=== PATIENT | female | born 1935 | race Caucasian/White ===

== ENCOUNTER 2017-10-05 10:06 | Inpatient (IN) | payer MEDICARE ==
[~2017-10-05] VITALS: Ht 149.9 cm; Wt 60.9 kg
[2017-10-05 10:24] VITALS: BP 122/63; PULSE 77; RESP 18; TEMP 97.5; O2SAT 99
[2017-10-05 10:28] VITALS: BP 122/63; PULSE 75; RESP 18; TEMP 97.5; O2SAT 100
--- NOTE | 2017-10-05 10:45 | RADRPT ---
EXAM DATE/TIME: 10/05/2017 10:24 [facility] COMPARISON: No previous studies available for comparison. INDICATIONS : Shortness of breath. Hemoptysis this morning. MEDICAL HISTORY : None. SURGICAL HISTORY : None. ENCOUNTER: Initial ACUITY: 1 day PAIN SCORE: Non-responsive. LOCATION: Bilateral chest FINDINGS: The left base is hypoaerated. There appears to be minimal atelectasis or scarring without consolidati ng airspace disease. Right lung is clear. Heart and mediastinal structures are unremarkable. CONCLUSION: Mild atelectasis versus scarring left lung base. No other evidence of acute process. Blaine Parra MD on October 05, 2017 at 10:42 Board Certified Radiologist. This report was verified electronically.
[2017-10-05] MEDS ORDERED: LANO0.12 PO (10:55)
[2017-10-05] MEDS ORDERED: GABA300C5 PO (10:55)
[2017-10-05] MEDS ORDERED: LOVA20TA PO (10:55)
[2017-10-05] MEDS ORDERED: CELE20TA PO (10:55)
[2017-10-05] MEDS ORDERED: HYDR-3288 PO (10:55)
[2017-10-05 10:57] LABS: AUTOMATED NEUTROPHIL # 9.9 TH/MM3 (1.8-7.7); BASOPHIL % 0.2 % (0.0-2.0); EOSINOPHIL # 0.2 TH/MM3 (0-0.4); EOSINOPHIL % 1.2 % (0.0-4.0); HEMATOCRIT 27.6 % (35.0-46.0); HEMO FLAGS DIFF FINAL; LYMPH % 19.3 % (9.0-44.0); LYMPHOCYTE # 2.6 TH/MM3 (1.0-4.8); MEAN CELL VOLUME 95.3 FL (80.0-100.0); MEAN CORPUSCULAR HEMOGLOBIN 32.1 PG (27.0-34.0); MEAN CORPUSCULAR HGB CONC 33.7 % (32.0-36.0); MONO % 4.9 % (0.0-8.0); NEUT % 74.4 % (16.0-70.0); PLATELET COUNT 265 TH/MM3 (150-450); RED CELL DISTRIBUTION WIDTH 13.3 % (11.6-17.2); WHITE BLOOD COUNT 13.3 TH/MM3 (4.0-11.0)
--- NOTE | 2017-10-05 11:01 | PD ---
HPI Chief Complaint: Bleeding Time Seen by Provider: 10:17 Travel History International Travel<30 days: No Contact w/Intl Traveler<30days: No Traveled to known affect area: No History of Present Illness HPI 82-year-old female was brought in by EMS for evaluation of weakness and vomiting up blood and blood per rectum. Patient states that she did not feel well all day yesterday. Patient patient was seen by her is morning slumped over in the bathroom, lethargic and was vomiting up blood and bleeding from the rectum. Blood pressure at the scene was 80 over 40s. IV was started. Patient was given normal saline 1 L IV bolus and transported ED for evaluation. Patient's states the patient is more confused this morning. Patient states that she has mild aching headache. Patient denies any chest pain or shortness of breath. Patient states that she has mild pain to the abdomen. Patient stated the pain cramping pain diffuse over the abdomen. Patient denies any pain radiation. Patient denies any focal weakness or numbness of extremity. Patient denies any fever chills. Patient denies any back pain. PFSH Past Medical History Hx Anticoagulant Therapy: Yes Atrial Fibrillation: Yes Depression: Yes Diminished Hearing: No Triglycerides - High: Yes Tetanus Vaccination: Unknown Influenza Vaccination: Yes ?: Not Social History Alcohol Use: No Tobacco Use: No Substance Use: No Allergies-Medications (Allergen,Severity, Reaction): Coded Allergies: No Known Allergies (Unverified , 10/05/17) Reported Meds & Prescriptions Reported Meds & Active Scripts Active Reported Lanoxin (Digoxin) 125 Mcg Tablet 125 Mcg PO DAILY Celexa (Citalopram Hydrobromide) 20 Mg Tab 20 Mg PO DAILY Gabapentin 300 Mg Cap 300 Mg PO DAILY IN THE PM Lovastatin 20 Mg Tab 20 Mg PO HS [place] (Hydrocodone-Acetaminophen) 7.5-325 mg Tab 1 Tab PO Q8HR PRN Review of Systems General / Constitutional: No: Fever Eyes: No: Visual changes HENT: Positive: Headaches Cardiovascular: No: Chest Pain or Discomfort Respiratory: No: Shortness of Breath Gastrointestinal: Positive: Abdominal Pain, Hematemesis Genitourinary: No: Dysuria Musculoskeletal: No: Pain Skin: No Rash Neurologic: No: Weakness Psychiatric: No: Depression Endocrine: No: Polydipsia Hematologic/Lymphatic: No: Easy Bruising Physical Exam Narrative GENERAL: Well-nourished, well-developed patient. SKIN: Focused skin assessment warm/dry. HEAD: Normocephalic. EYES: No scleral icterus. No injection or drainage. NECK: Supple, trachea midline. No JVD or lymphadenopathy. CARDIOVASCULAR: Regular rate and rhythm without murmurs, gallops, or rubs. RESPIRATORY: Breath sounds equal bilaterally. No accessory muscle use. GASTROINTESTINAL: Abdomen soft, nondistended. Patient has mild diffuse tenderness over the abdomen. No rebound tenderness. No mass. MUSCULOSKELETAL: No cyanosis, or edema. BACK: Nontender without obvious deformity. No CVA tenderness. Neurologic exam: Patient's lethargic. Patient answers questions appropriately. Patient moves all extremity well. No obvious focal neurological deficit. Data Data Last Documented VS Vital Signs Date Time Temp Pulse Resp B/P (MAP) Pulse Ox O2 Delivery O2 Flow Rate FiO2 10/05/17 10:28 18 100 Nasal Cannula 2.00 10/05/17 10:28 79 10/05/17 10:28 97.5 122/63 (82) Orders Orders Electrocardiogram (10/05/17 10:21) Complete Blood Count With Diff (10/05/17 10:21) Comprehensive Metabolic Panel (10/05/17 10:21) Prothrombin Time / Inr (Pt) (10/05/17 10:21) Act Partial Throm Time (Ptt) (10/05/17 10:21) Urinalysis - C+S If Indicated (10/05/17 10:21) Digoxin (10/05/17 10:21) Thyroid Stimulating Hormone (10/05/17 10:21) Chest, Single Ap (10/05/17 10:21) Ct Brain W/O Iv Contrast(Rout) (10/05/17 10:21) Iv Access Insert/Monitor (10/05/17 10:21) Ecg Monitoring (10/05/17 10:21) Oxygen Administration (10/05/17 10:21) Oximetry (10/05/17 10:21) Type And Screen (10/05/17 10:21) Ct Abd/Pel W Iv Contrast(Rout) (10/05/17 10:26) Labs Laboratory Tests Test 10/05/17 10:30 10/05/17 11:31 White Blood Count 13.3 TH/MM3 Red Blood Count 2.90 MIL/MM3 Hemoglobin 9.3 GM/DL Hematocrit 27.6 % Mean Corpuscular Volume 95.3 FL Mean Corpuscular Hemoglobin 32.1 PG Mean Corpuscular Hemoglobin Concent 33.7 % Red Cell Distribution Width 13.3 % Platelet Count 265 TH/MM3 Mean Platelet Volume 8.2 FL Neutrophils (%) (Auto) 74.4 % Lymphocytes (%) (Auto) 19.3 % Monocytes (%) (Auto) 4.9 % Eosinophils (%) (Auto) 1.2 % Basophils (%) (Auto) 0.2 % Neutrophils # (Auto) 9.9 TH/MM3 Lymphocytes # (Auto) 2.6 TH/MM3 Monocytes # (Auto) 0.7 TH/MM3 Eosinophils # (Auto) 0.2 TH/MM3 Basophils # (Auto) 0.0 TH/MM3 CBC Comment DIFF FINAL Differential Comment Prothrombin Time 11.5 SEC Prothromb Time International Ratio 1.0 RATIO Activated Partial Thromboplast Time 20.9 SEC Blood Urea Nitrogen 61 MG/DL Creatinine 0.68 MG/DL Random Glucose 116 MG/DL Total Protein 4.9 GM/DL Albumin 2.5 GM/DL Calcium Level 7.5 MG/DL Alkaline Phosphatase 31 U/L Aspartate Amino Transf (AST/SGOT) 10 U/L Alanine Aminotransferase (ALT/SGPT) 14 U/L Total Bilirubin 0.3 MG/DL Sodium Level 142 MEQ/L Potassium Level 3.5 MEQ/L Chloride Level 112 MEQ/L Carbon Dioxide Level 21.3 MEQ/L Anion Gap 9 MEQ/L Estimat Glomerular Filtration Rate 83 ML/MIN Thyroid Stimulating Hormone 3rd Gen 3.770 uIU/ML Digoxin Level 0.5 NG/ML Urine Color YELLOW Urine Turbidity CLEAR Urine pH 5.0 Urine Specific [place] 1.027 Urine Protein TRACE mg/dL Urine Glucose (UA) NEG mg/dL Urine Ketones 10 mg/dL Urine Occult Blood NEG Urine Nitrite NEG Urine Bilirubin NEG Urine Urobilinogen LESS THAN 2.0 MG/DL Urine Leukocyte Esterase SMALL Urine RBC LESS THAN 1 /hpf Urine WBC 1 /hpf Urine Mucus FEW /lpf Microscopic Urinalysis Comment CATH-CULT NOT IND MDM Medical Decision Making Medical Screen Exam Complete: Yes Emergency Medical Condition: Yes Interpretation(s) 12:37 PM. Last Impressions Chest X-Ray 10/05/17 1021 Signed Impressions: Service Date/Time: Thursday, October 05, 2017 10:24 - CONCLUSION: Mild atelectasis versus scarring left lung base. No other evidence of acute process. Blaine Parra MD 12:37 PM. CBC WBC 13.3. Hemoglobin 9.3 hematocrit 27.6. 74 neutrophil. BUN 61. Creatinine 0.68. GFR 83. Calcium 7.5. TSH 3.77. Digoxin 0.5. UA is negative. Differential Diagnosis Differential diagnosis including upper GI bleed, lower GI bleed, bowel obstruction, anemia, electrolyte imbalance, cephalgia. Narrative Course 82-year-old female with headache, abdominal pain, hematemesis, rectal bleeding, generalized malaise and weakness. Normal saline solution 1 L IV bolus. Normal saline solution 1 25 cc an hour. Protonix bolus and drip started. Diagnosis Primary Impression: GI bleed Qualified Codes: K92.2 - Gastrointestinal hemorrhage, unspecified Additional Impression: Anemia Qualified Codes: D64.9 - Anemia, unspecified Jaden Harris MD Oct 05, 2017 11:01
[2017-10-05 11:14] LABS: APTT (PATIENT) 20.9 SEC (24.3-30.1); PROTHROMBIN TIME - PATIENT 11.5 SEC (9.8-11.6)
[2017-10-05 11:20] LABS: ANION GAP 9 MEQ/L (5-15); AST (GOT) 10 U/L (15-37); BICARBONATE 21.3 MEQ/L (21.0-32.0); BLOOD UREA NITROGEN 61 MG/DL (7-18); CHLORIDE 112 MEQ/L (98-107); GLOMERULAR FILTRATION RATE 83 ML/MIN (>89); POTASSIUM 3.5 MEQ/L (3.5-5.1); SODIUM (NA) 142 MEQ/L (136-145)
[2017-10-05 11:34] LABS: ALKALINE PHOSPHATASE 31 U/L (45-117); ALT (GPT) 14 U/L (10-53); DIGOXIN 0.5 NG/ML (0.8-2.0); TOTAL BILIRUBIN ADULT 0.3 MG/DL (0.2-1.0)
[2017-10-05 12:01] LABS: BLOOD, URINE NEG (NEG); COMMENT (UR) CATH-CULT NOT IND; CULTURE IF INDICATED CATH CULTURE NOT IND; GLUCOSE,URINE NEG (NEG); KETONE, URINE 10 mg/dL (NEG); MUCUS URINE FEW /lpf (OCC); NITRITE,URINE NEG (NEG); URINE COLOR YELLOW (YELLW/STRAW)
--- NOTE | 2017-10-05 13:00 | RADRPT ---
EXAM DATE/TIME: 10/05/2017 12:17 [facility] COMPARISON: No previous studies available for comparison. INDICATIONS : Found unresponsive earlier today. RADIATION DOSE: 36.32 CTDIvol (mGy) MEDICAL HISTORY : Atrial fibrillation. SURGICAL HISTORY : None. ENCOUNTER: Initial ACUITY: 1 day PAIN SCALE: 0/10 LOCATION: cranial TECHNIQUE: Multiple contiguous axial images were obtained of the head. Using automated exposure control and adj ustment of the mA and/or kV according to patient size, radiation dose was kept as low as reasonably a chievable to obtain optimal diagnostic quality images. DICOM format image data is available electro nically for review and comparison. FINDINGS: CEREBRUM: The ventricles are normal for age. No evidence of midline shift, mass lesion, hemorrhage or acute in farction. Minimal periventricular small vessel ischemic demyelination around the frontal horns of th e lateral ventricles. No extra-axial fluid collections are seen. POSTERIOR FOSSA: The cerebellum and brainstem are intact. The 4th ventricle is midline. The cerebellopontine angle i s unremarkable. EXTRACRANIAL: The visualized portion of the orbits is intact. SKULL: The calvaria is intact. No evidence of skull fracture. Calcific or bony excrescence off the right fr ontoparietal region is overtly benign, does not appear to be contiguous with the epiploic space and m ay represent an old calcified sebaceous cyst. CONCLUSION: 1. Minimal degenerative changes with some periventricular small vessel ischemic demyelination around the frontal horns of the lateral ventricles. 2. Benign calcification in the subcutaneous tissues of the right frontoparietal region. 3. Nothing acute.. Kyrie Tejeda MD on October 05, 2017 at 12:55 Board Certified Radiologist. This report was verified electronically.
[2017-10-05] MEDS ORDERED: IOHEXOL 350 MG/ML 10 ML VIAL (for RAD DIAG) IVCONTRAST ONE (13:06)
--- NOTE | 2017-10-05 13:09 | RADRPT ---
EXAM DATE/TIME: 10/05/2017 12:23 [facility] COMPARISON: No previous studies available for comparison. INDICATIONS : Rectal bleeding, hematemesis. IV CONTRAST: cc Omnipaque 350 (iohexol) IV ORAL CONTRAST: No oral contrast ingested. RADIATION DOSE: 5.36 CTDIvol (mGy) MEDICAL HISTORY : Atrial fibrillation. SURGICAL HISTORY : None. ENCOUNTER: Initial ACUITY: 1 day PAIN SCALE: 3 of 10 LOCATION: Abdomen TECHNIQUE: Volumetric scanning of the abdomen and pelvis was performed. Using automated exposure control and ad justment of the mA and/or kV according to patient size, radiation dose was kept as low as reasonably achievable to obtain optimal diagnostic quality images. DICOM format image data is available electro nically for review and comparison. FINDINGS: LOWER LUNGS: Minimal scarring or atelectasis above the left hemidiaphragm. No confluent infiltrate. LIVER: Homogeneous, but decreased density without lesion. There is no dilation of the biliary tree. Single 1.3 cm irregular calcified gallstone in the gallbladder lumen. SPLEEN: Normal size without lesion. PANCREAS: Within normal limits. KIDNEYS: Normal in size and shape. There is no mass, stone or hydronephrosis. ADRENAL GLANDS: Within normal limits. VASCULAR: There is no aortic aneurysm. BOWEL/MESENTERY: There is some distention of small bowel loops in the left upper abdominal quadrant in a nonspecific p attern. This may represent a focal hypodynamic ileus. No obvious obstruction. No significant divertic ular disease. ABDOMINAL WALL: Within normal limits. RETROPERITONEUM: There is no lymphadenopathy. BLADDER: No wall thickening or mass. REPRODUCTIVE: Patient is status post hysterectomy. INGUINAL: There is no lymphadenopathy or hernia. MUSCULOSKELETAL: S. shaped scoliosis of the thoracolumbar spine. Otherwise intact. CONCLUSION: 1. Isolated, irregular 1.3 cm gallstone in the gallbladder lumen. Mild gallbladder distention but no pericholecystic fluid. 2. Mild, diffuse hepatic fatty infiltration 3. Mild distention of small bowel loops particularly in the left upper abdominal quadrant. Pattern is nonspecific but does not appear to represent obstruction. This could be secondary to a focal hypodyn amic ileus. 4. S-shaped scoliosis of the thoracolumbar spine. Minimal scarring or atelectasis above the left betsey diaphragm. . Kyrie Tejeda MD on October 05, 2017 at 13:01 Board Certified Radiologist. This report was verified electronically.
[2017-10-05 14:00] VITALS: BP 120/70; PULSE 98; RESP 18; O2SAT 100
[2017-10-05] MEDS: SODIUM CHLOR 0.9% 1000 ML INJ 1,000 ML IV SCH (14:34)
--- NOTE | 2017-10-05 14:44 | HHI.HP ---
[facility] Service [facility] Primary Care Physician Brent Scott MD Admission Diagnosis GI bleed Diagnoses: Chief Complaint: Abdominal discomfort and bleeding Travel History International Travel<30 Days: No Contact w/Intl Traveler <30 Da: No Traveled to Known Affected Are: No History of Present Illness This patient is an 82 year old female with a history of atrial fibrillation although not on any blood thinners. She comes to the emergency room with onset 2 days of abdominal discomfort and increasing weakness with sudden onset of vomiting blood and bleeding per her rectum. She went to the bathroom and didn' t come back and her found her lethargic with lots of blood surrounding her in the bathroom. EMS was called and blood pressure was quite low in the 80s over 40s. Patient was given IV fluids in the field and transferred to the emergency room. Patient complains of being cold. She denies any pain at this time although she said her abdomen hurt when she went to the bathroom. She is ever had any bleeding before. She disarm her having endoscopy but this time she feels very tired. She denies any NSAIDs but takes Narco and gabapentin for pain. Patient admitted to the hospital for further evaluation of acute onset of GI bleeding Review of Systems Constitutional: DENIES: Diaphoretic episodes, Fatigue, Fever, Weight gain, Weight loss, Chills, Dizziness, Change in appetite, Night Sweats Endocrine: DENIES: Abnorml menstrual pattern, Heat/cold intolerance, Polydipsia , Polyuria, Polyphagia Eyes: DENIES: Blurred vision, Diplopia, Eye inflammation, Eye pain, Vision loss , Photosensitivity, Double Vision Ears, nose, mouth, throat: DENIES: Tinnitus, Hearing loss, Vertigo, Nasal discharge, Oral lesions, Throat pain, Hoarseness, Ear Pain, Running Nose, Epistaxis, Sinus Pain, Toothache, Odynophagia Respiratory: DENIES: Apneas, Cough, Snoring, Wheezing, Hemoptysis, Sputum production, Shortness of breath Cardiovascular: DENIES: Chest pain, Palpitations, Syncope, Dyspnea on Exertion , PND, Lower Extremity Edema, Orthopnea, Claudication Gastrointestinal: COMPLAINS OF: Abdominal pain, Bloody stools, Nausea, Vomiting , DENIES: Black stools, Constipation, Diarrhea, Difficulty Swallowing, Anorexia Genitourinary: DENIES: Abnormal vaginal bleeding, Dysmenorrhea, Dyspareunia, Sexual dysfunction, Urinary frequency, Urinary incontinence, Urgency, Hematuria , Dysuria, Nocturia, Vaginal discharge Musculoskeletal: COMPLAINS OF: Joint pain, Back pain, DENIES: Muscle aches, Stiffness, Joint Swelling, Neck pain Integumentary: DENIES: Abnormal pigmentation, Pruritus, Rash, Nail changes, Breast masses, Breast skin changes, Nipple discharge Hematologic/lymphatic: DENIES: Bruising, Lymphadenopathy Immunologic/allergic: DENIES: Eczema, Urticaria Neurologic: DENIES: Abnormal gait, Headache, Localized weakness, Paresthesias, Seizures, Speech Problems, Tremor, Poor Balance Psychiatric: DENIES: Anxiety, Confusion, Mood changes, Depression, Hallucinations, Agitation, Suicidal Ideation, Homicidal Ideation, Delusions Except as stated in HPI: all other systems reviewed are Neg Past Family Social History Past Medical History Atrial fibrillation Hypertension Depression/anxiety Chronic pain Past Surgical History Back surgery Reported Medications Reviewed in the EMR Allergies: Coded Allergies: No Known Allergies (Unverified , 10/05/17) Active Ordered Medications Reviewed in the EMR Family History Patient does not recall Social History No tobacco or alcohol dependency issues, lives with her , is independent with her ADLs Physical Exam Vital Signs Vital Signs Date Time Temp Pulse Resp B/P (MAP) Pulse Ox O2 Delivery O2 Flow Rate FiO2 10/05/17 10:28 18 100 Nasal Cannula 2.00 10/05/17 10:28 100 Nasal Cannula 2.00 10/05/17 10:28 79 18 99 Room Air 10/05/17 10:28 97.5 75 18 122/63 (82) 100 Nasal Cannula 2.00 10/05/17 10:24 97.5 77 18 122/63 (82) 99 Physical Exam GENERAL: This is a well-nourished, well-developed patient, clearly distressed regarding the "amount of blood" SKIN: No rashes, ecchymoses or lesions. Cool and dry. HEAD: Atraumatic. Normocephalic. No temporal or scalp tenderness. EYES: Pupils equal round and reactive. Extraocular motions intact. No scleral icterus. No injection or drainage. ENT: Nose without bleeding, purulent drainage or septal hematoma. Throat without erythema, tonsillar hypertrophy or exudate. Uvula midline. Airway patent. NECK: Trachea midline. No JVD or lymphadenopathy. Supple, nontender, no meningeal signs. CARDIOVASCULAR: Regular rate and rhythm without murmurs, gallops, or rubs. RESPIRATORY: Clear to auscultation. Breath sounds equal bilaterally. No wheezes , rales, or rhonchi. GASTROINTESTINAL: Abdomen soft, non-tender, nondistended. No hepato-splenomegaly , or palpable masses. No guarding. MUSCULOSKELETAL: Extremities without clubbing, cyanosis, or edema. No joint tenderness, effusion, or edema noted. No calf tenderness. Negative Homans sign bilaterally. NEUROLOGICAL: Awake and alert. Cranial nerves II through XII intact. Motor and sensory grossly within normal limits. Five out of 5 muscle strength in all muscle groups. Normal speech. Laboratory Laboratory Tests Test 10/05/17 10:30 10/05/17 11:31 White Blood Count 13.3 Red Blood Count 2.90 Hemoglobin 9.3 Hematocrit 27.6 Mean Corpuscular Volume 95.3 Mean Corpuscular Hemoglobin 32.1 Mean Corpuscular Hemoglobin Concent 33.7 Red Cell Distribution Width 13.3 Platelet Count 265 Mean Platelet Volume 8.2 Neutrophils (%) (Auto) 74.4 Lymphocytes (%) (Auto) 19.3 Monocytes (%) (Auto) 4.9 Eosinophils (%) (Auto) 1.2 Basophils (%) (Auto) 0.2 Neutrophils # (Auto) 9.9 Lymphocytes # (Auto) 2.6 Monocytes # (Auto) 0.7 Eosinophils # (Auto) 0.2 Basophils # (Auto) 0.0 CBC Comment DIFF FINAL Differential Comment Prothrombin Time 11.5 Prothromb Time International Ratio 1.0 Activated Partial Thromboplast Time 20.9 Blood Urea Nitrogen 61 Creatinine 0.68 Random Glucose 116 Total Protein 4.9 Albumin 2.5 Calcium Level 7.5 Alkaline Phosphatase 31 Aspartate Amino Transf (AST/SGOT) 10 Alanine Aminotransferase (ALT/SGPT) 14 Total Bilirubin 0.3 Sodium Level 142 Potassium Level 3.5 Chloride Level 112 Carbon Dioxide Level 21.3 Anion Gap 9 Estimat Glomerular Filtration Rate 83 Thyroid Stimulating Hormone 3rd Gen 3.770 Digoxin Level 0.5 Urine Color YELLOW Urine Turbidity CLEAR Urine pH 5.0 Urine Specific [place] 1.027 Urine Protein TRACE Urine Glucose (UA) NEG Urine Ketones 10 Urine Occult Blood NEG Urine Nitrite NEG Urine Bilirubin NEG Urine Urobilinogen LESS THAN 2.0 Urine Leukocyte Esterase SMALL Urine RBC LESS THAN 1 Urine WBC 1 Urine Mucus FEW Microscopic Urinalysis Comment CATH-CULT NOT IND Result Diagram: 10/05/17 1030 10/05/17 1030 Imaging Last Impressions Abdomen/Pelvis CT 10/05/17 1026 Signed Impressions: Service Date/Time: Thursday, October 05, 2017 12:23 - CONCLUSION: 1. Isolated, irregular 1.3 cm gallstone in the gallbladder lumen. Mild gallbladder distention but no pericholecystic fluid. 2. Mild, diffuse hepatic fatty infiltration 3. Mild distention of small bowel loops particularly in the left upper abdominal quadrant. Pattern is nonspecific but does not appear to represent obstruction. This could be secondary to a focal hypodynamic ileus. 4. S-shaped scoliosis of the thoracolumbar spine. Minimal scarring or atelectasis above the left hemidiaphragm. . Kyrie Tejeda MD Head CT 10/05/17 1021 Signed Impressions: Service Date/Time: Thursday, October 05, 2017 12:17 - CONCLUSION: 1. Minimal degenerative changes with some periventricular small vessel ischemic demyelination around the frontal horns of the lateral ventricles. 2. Benign calcification in the subcutaneous tissues of the right frontoparietal region. 3. Nothing acute.. Kyrie Tejeda MD Chest X-Ray 10/05/17 1021 Signed Impressions: Service Date/Time: Thursday, October 05, 2017 10:24 - CONCLUSION: Mild atelectasis versus scarring left lung base. No other evidence of acute process. Blaine Parra MD Caprini VTE Risk Assessment Caprini VTE Risk Assessment: Mod/High Risk (score >= 2) VTE Pharm Contraindication: Active bleeding Caprini Risk Assessment Model Point Value = 1 Point Value = 2 Point Value = 3 Point Value = 5 Age 41-60 Minor surgery BMI > 25 kg/m2 Swollen legs Varicose veins or History of unexplained or recurrent spontaneous Oral contraceptives or hormone replacement Sepsis (< 1 month) Serious lung disease, including pneumonia (< 1 month) Abnormal pulmonary function Acute myocardial infarction Congestive heart failure (< 1 month) History of inflammatory bowel disease Medical patient at bed rest Age 61-74 Arthroscopic surgery Major open surgery (> 45 min) Laparoscopic surgery (> 45 min) Malignancy Confined to bed (> 72 hours) Immobilizing plaster cast Central venous access Age >= 75 History of VTE Family history of VTE Factor V Leiden Prothrombin [id number] Lupus anticoagulant Anticardiolipin antibodies Elevated serum homocysteine Heparin-induced thrombocytopenia Other congenital or acquired thrombophilia Stroke (< 1 month) Elective arthroplasty Hip, pelvis, or leg fracture Acute spinal cord injury (< 1 month) Prophylaxis Regimen Total Risk Factor Score Risk Level Prophylaxis Regimen 0-1 Low Early ambulation 2 Moderate Order ONE of the following: *Sequential Compression Device (SCD) *Heparin 5000 units SQ BID 3-4 Higher Order ONE of the following medications: *Heparin 5000 units SQ TID *Enoxaparin/Lovenox 40 mg SQ daily (WT < 150 kg, CrCl > 30 mL/min) *Enoxaparin/Lovenox 30 mg SQ daily (WT < 150 kg, CrCl > 10-29 mL/min) *Enoxaparin/Lovenox 30 mg SQ BID (WT < 150 kg, CrCl > 30 mL/min) AND/OR *Sequential Compression Device (SCD) 5 or more Highest Order ONE of the following medications: *Heparin 5000 units SQ TID (Preferred with Epidurals) *Enoxaparin/Lovenox 40 mg SQ daily (WT < 150 kg, CrCl > 30 mL/min) *Enoxaparin/Lovenox 30 mg SQ daily (WT < 150 kg, CrCl > 10-29 mL/min) *Enoxaparin/Lovenox 30 mg SQ BID (WT < 150 kg, CrCl > 30 mL/min) AND *Sequential Compression Device (SCD) Assessment and Plan Problem List: (1) Afib ICD Code: I48.91 - Unspecified atrial fibrillation Plan: Patient on digoxin, on no blood thinners per patient Continue to follow on subtherapeutic digoxin (2) Back pain ICD Code: M54.9 - Dorsalgia, unspecified Plan: patient denies NSAIDs, currently takes gabapentin and Narco as needed (3) Hyperlipidemia ICD Code: E78.5 - Hyperlipidemia, unspecified Plan: continue with lovastatin (4) GI bleed ICD Code: K92.2 - Gastrointestinal hemorrhage, unspecified Status: Acute Plan: Painless bleeding at this point line continue with nothing by mouth status, IV hydration, follow for transfusion needs GI consult is pending CT abdomen and pelvis reviewed and does show adynamic ileus without overt signs of a mass or ulceration (5) Anemia ICD Code: D64.9 - Anemia, unspecified Status: Acute Plan: Secondary to acute GI bleeding and blood loss is Follow hemoglobin and transfuse as needed Physician Certification 2 Midnight Certification Type: Admission for Inpatient Services Order for Inpatient Services The services are ordered in accordance with Medicare regulations or non- Medicare payer requirements, as applicable. In the case of services not specified as inpatient-only, they are appropriately provided as inpatient services in accordance with the 2-midnight benchmark. Estimated LOS (days): 3 3 days is the estimated time the patient will need to remain in the hospital, assuming treatment plan goals are met and no additional complications. Post-Hospital Plan: Home Problem Qualifiers (1) GI bleed: Qualified Codes: K92.2 - Gastrointestinal hemorrhage, unspecified (2) Anemia: Qualified Codes: D64.9 - Anemia, unspecified Meryl Reynolds MD Oct 05, 2017 14:44
[2017-10-05] MEDS ORDERED: ACETAMINOPHEN 325 MG TAB PO PRN (14:45)
[2017-10-05] MEDS ORDERED: SODIUM CHLORIDE 0.9% FLUSH 10 ML FLUSH IV FLUSH PRN (14:45)
[2017-10-05] MEDS ORDERED: NALOXONE HCL 0.4 MG/ML AMP IV PUSH PRN (14:45)
[2017-10-05 15:23] VITALS: BP 114/61; PULSE 104; RESP 18; O2SAT 100
[2017-10-05 15:57] LABS: TRANSFERRIN IRON PROFILE 164 MG/DL (200-360)
[2017-10-05 16:00] VITALS: BP 99/57; PULSE 85; PULSE 96; RESP 16; TEMP 99.1; O2SAT 98
[2017-10-05 20:00] VITALS: BP 107/54; PULSE 92; RESP 17; TEMP 99; O2SAT 98
[2017-10-05] MEDS: ACETAMINOPHEN/HYDROcodone 325 MG/7.5 MG TAB PO PRN (20:21)
[2017-10-05] MEDS: SODIUM CHLORIDE 0.9% FLUSH 10 ML FLUSH IV FLUSH SCH (20:21)
[2017-10-05] MEDS: ONDANSETRON HCL 4 MG/2 ML VIAL IVP PRN (20:21)
[2017-10-06] VITALS (11 sets, daily range): BP systolic 100–136; BP diastolic 51–64; PULSE 70–151; RESP 16–19; TEMP 97.5–98.8; O2SAT 99–100
[2017-10-06] MEDS: SODIUM CHLOR 0.9% 1000 ML INJ 1,000 ML IV SCH ×3 (04:24→22:28)
[2017-10-06 06:13] LABS: AUTOMATED NEUTROPHIL # 6.1 TH/MM3 (1.8-7.7); BASOPHIL % 0.5 % (0.0-2.0); EOSINOPHIL # 0.2 TH/MM3 (0-0.4); EOSINOPHIL % 2.2 % (0.0-4.0); HEMATOCRIT 21.3 % (35.0-46.0); HEMO FLAGS DIFF FINAL; LYMPH % 30.5 % (9.0-44.0); MEAN CELL VOLUME 93.8 FL (80.0-100.0); MEAN CORPUSCULAR HEMOGLOBIN 32.4 PG (27.0-34.0); MEAN CORPUSCULAR HGB CONC 34.5 % (32.0-36.0); MONO % 5.5 % (0.0-8.0); NEUT % 61.3 % (16.0-70.0); PLATELET COUNT 231 TH/MM3 (150-450); RED BLOOD COUNT 2.27 MIL/MM3 (4.00-5.30); RED CELL DISTRIBUTION WIDTH 13.5 % (11.6-17.2)
[2017-10-06 06:43] LABS: BICARBONATE 22.7 MEQ/L (21.0-32.0); POTASSIUM 3.7 MEQ/L (3.5-5.1)
[2017-10-06] MEDS ORDERED: SODIUM CHLOR 0.9% 250 ML INJ 250 ML IV ONE (08:30)
[2017-10-06] MEDS: SODIUM CHLORIDE 0.9% FLUSH 10 ML FLUSH IV FLUSH SCH ×2 (08:37→22:28)
[2017-10-06] MEDS: ONDANSETRON HCL 4 MG/2 ML VIAL IVP PRN ×2 (09:23→22:28)
[2017-10-06] MEDS: ACETAMINOPHEN/HYDROcodone 325 MG/7.5 MG TAB PO PRN ×3 (09:38→22:27)
--- NOTE | 2017-10-06 13:09 | EKG ---
Date Performed: 10/05/2017 Time Performed: 10:48:57 PTAGE: 82 years EKG: Sinus rhythm NONSPECIFIC T-WAVE ABNORMALITY BORDERLINE ECG NO PREVIOUS TRACING DOCTOR: Silver Alexander Interpretating Date/Time 10/06/2017 13:07:22
--- NOTE | 2017-10-06 13:40 | PD.CONS ---
HPI History of Present Illness This is a 82 year old with a history of atrial fibrillation, but not on any blood thinners, who came to the emergency room yesterday for gastrointestinal bleeding. She was in her normal state of health up until , when she started having nausea and feeling weak. The generalized weakness progressively worsened throughout the day Saturday and Saturday. On Saturday, she had some mild abdominal cramping with the urge to move her bowels. She then started having nausea and vomiting consisting of black emesis and started passing dark loose stool, with a small amount of red blood in it. She came to the ER for further evaluation and was found to have a 9.3/27.6. She has not had any further vomiting, but her H/H dropped to 7.3/21.3 today. She has had a dark stool today as well. She denies any chest pain, reflux, heartburn, or abnormal weight loss. She denies any history of peptic ulcer disease and does not take NSAIDS or ETOH. She is NPO and requesting something to drink or eat. (Cammie Patterson) PFSH Past Medical History Atrial fibrillation Hypertension Depression/anxiety Chronic pain Past Surgical History Back surgery (Cammie Patterson) Coded Allergies: No Known Allergies (Unverified , 10/05/17) Medications Allergies Coded Allergies Type Severity Reaction Last Updated Verified No Known Allergies 10/05/17 No Active Scripts Medications Dose Route/Sig Max Daily Dose Days Date Category Lanoxin (Digoxin) 125 Mcg Tablet 125 Mcg PO DAILY 10/05/17 Reported Celexa (Citalopram Hydrobromide) 20 Mg Tab 20 Mg PO DAILY 10/05/17 Reported Gabapentin 300 Mg Cap 300 Mg PO DAILY IN THE PM 10/05/17 Reported Lovastatin 20 Mg Tab 20 Mg PO HS 10/05/17 Reported [place] (Hydrocodone-Acetaminophen) 7.5-325 mg Tab 1 Tab PO Q8HR PRN 10/05/17 Reported Family History Mother from unknown type of cancer. Social History Denies the use of tobacco, etoh, illicit drug use. (Cammie Patterson) Review of Systems Constitutional: COMPLAINS OF: Fatigue, Change in appetite, DENIES: Weight loss Respiratory: DENIES: Cough Cardiovascular: DENIES: Chest pain Gastrointestinal: COMPLAINS OF: Abdominal pain (mild cramping on Saturday), Black stools, Nausea, Vomiting, Hematemesis, DENIES: Heartburn Musculoskeletal: COMPLAINS OF: Joint pain, Back pain Neurologic: DENIES: Headache Psychiatric: DENIES: Confusion (YeseniaCammie Villeda ELISHA) GI Exam Vitals I&O Vital Signs Date Time Temp Pulse Resp B/P (MAP) Pulse Ox O2 Delivery O2 Flow Rate FiO2 10/06/17 10:56 79 10/06/17 10:40 18 10/06/17 08:06 98.5 79 16 105/58 (74) 99 10/06/17 04:00 98.1 70 18 102/55 (71) 100 10/06/17 00:00 98.3 73 19 136/64 (88) 100 10/05/17 20:00 99.0 92 17 107/54 (71) 98 10/05/17 20:00 92 10/05/17 16:00 85 10/05/17 16:00 99.1 96 16 99/57 (71) 98 10/05/17 15:31 10/05/17 15:23 104 18 114/61 (78) 100 Nasal Cannula 2.00 10/05/17 14:00 98 18 120/70 (87) 100 Nasal Cannula 2.00 I/O 10/05/17 10/05/17 10/05/17 10/06/17 10/06/17 10/06/17 07:00 15:00 23:00 07:00 15:00 23:00 Intake Total 0 ml Balance 0 ml Intake Oral 0 ml # Voids 1 3 Imaging Last Impressions Abdomen/Pelvis CT 10/05/17 1026 Signed Impressions: Service Date/Time: Thursday, October 05, 2017 12:23 - CONCLUSION: 1. Isolated, irregular 1.3 cm gallstone in the gallbladder lumen. Mild gallbladder distention but no pericholecystic fluid. 2. Mild, diffuse hepatic fatty infiltration 3. Mild distention of small bowel loops particularly in the left upper abdominal quadrant. Pattern is nonspecific but does not appear to represent obstruction. This could be secondary to a focal hypodynamic ileus. 4. S-shaped scoliosis of the thoracolumbar spine. Minimal scarring or atelectasis above the left hemidiaphragm. . Kyrie Tejeda MD Head CT 10/05/17 1021 Signed Impressions: Service Date/Time: Thursday, October 05, 2017 12:17 - CONCLUSION: 1. Minimal degenerative changes with some periventricular small vessel ischemic demyelination around the frontal horns of the lateral ventricles. 2. Benign calcification in the subcutaneous tissues of the right frontoparietal region. 3. Nothing acute.. Kyrie Tejeda MD Chest X-Ray 10/05/17 1021 Signed Impressions: Service Date/Time: Thursday, October 05, 2017 10:24 - CONCLUSION: Mild atelectasis versus scarring left lung base. No other evidence of acute process. Blaine Parra MD Laboratory Test 10/06/17 05:26 White Blood Count 10.0 TH/MM3 Red Blood Count 2.27 MIL/MM3 Hemoglobin 7.3 GM/DL Hematocrit 21.3 % Mean Corpuscular Volume 93.8 FL Mean Corpuscular Hemoglobin 32.4 PG Mean Corpuscular Hemoglobin Concent 34.5 % Red Cell Distribution Width 13.5 % Platelet Count 231 TH/MM3 Mean Platelet Volume 8.1 FL Neutrophils (%) (Auto) 61.3 % Lymphocytes (%) (Auto) 30.5 % Monocytes (%) (Auto) 5.5 % Eosinophils (%) (Auto) 2.2 % Basophils (%) (Auto) 0.5 % Neutrophils # (Auto) 6.1 TH/MM3 Lymphocytes # (Auto) 3.0 TH/MM3 Monocytes # (Auto) 0.6 TH/MM3 Eosinophils # (Auto) 0.2 TH/MM3 Basophils # (Auto) 0.0 TH/MM3 CBC Comment DIFF FINAL Differential Comment Blood Urea Nitrogen 54 MG/DL Creatinine 0.51 MG/DL Random Glucose 84 MG/DL Calcium Level 7.5 MG/DL Sodium Level 145 MEQ/L Potassium Level 3.7 MEQ/L Chloride Level 115 MEQ/L Carbon Dioxide Level 22.7 MEQ/L Anion Gap 7 MEQ/L Estimat Glomerular Filtration Rate 116 ML/MIN Physical Examination HEENT: Normocephalic; atraumatic; no jaundice. CHEST: CTA CARDIAC: Irregular ABDOMEN: Soft, nondistended, nontender; no hepatosplenomegaly; bowel sounds are present in all four quadrants. EXTREMITIES: No clubbing, cyanosis, or edema. SKIN: Normal; no rash; no jaundice. FREIGHT FLAGMAN: No focal deficits; lethargic and oriented times three. Generalized weakness (Cammie Patterson) Assessment and Plan Plan ASSESSMENT: - Upper GIB with hematemesis (black) and dark stool. Not on blood thinners, no NSAIDs, no ETOH. Decreased appetite and nausea, generalized weakness that has progressively been getting worse since . Yesterday started vomiting black gastric secretions and passing dark loose stool. HH dropped from 9.3/27.6 to 7.3/21.3. Not on PPI. NPO. - Anemia, acute blood loss. HH dropped 9.3/27.6 to 7.3/21.3. 2 units PRBC ordered. - Atrial fibrillation (not on blood thinners), HTN, depression/anxiety, chronic pain per attending. PLAN: - Plan for EGD in am - Obtain consents - Clear liquids - NPO after MN - Add Protonix Gtt - Agree with 2 units PRBC - CBC, BMP in am - Notify GI of active bleeding - Supportive care - Further recommendations to follow based on results of above - Pt seen and examined by Dr. Arellano and myself and this note is written on his behalf (Cammie Patterson) Physician Comments Seen and examined, plan as above. For EGD in AM Further recommendations to follow. Thank you for the consult. (Ashutosh Arellano MD) Cammie Patterson Oct 06, 2017 13:40 Ashutosh Arellano MD Oct 06, 2017 14:16
--- NOTE | 2017-10-06 14:28 | HHI.PR ---
Subjective Remarks No evidence of further GI bleed. Hemoglobin has dropped from 9.3-7.3. EGD planned tomorrow morning. Objective Vital Signs Date Time Temp Pulse Resp B/P (MAP) Pulse Ox O2 Delivery O2 Flow Rate FiO2 10/06/17 12:06 98.8 93 16 103/54 (70) 100 10/06/17 10:56 79 10/06/17 10:40 18 10/06/17 08:06 98.5 79 16 105/58 (74) 99 10/06/17 04:00 98.1 70 18 102/55 (71) 100 10/06/17 00:00 98.3 73 19 136/64 (88) 100 10/05/17 20:00 99.0 92 17 107/54 (71) 98 10/05/17 20:00 92 10/05/17 16:00 85 10/05/17 16:00 99.1 96 16 99/57 (71) 98 10/05/17 15:31 10/05/17 15:23 104 18 114/61 (78) 100 Nasal Cannula 2.00 I/O 10/05/17 10/05/17 10/05/17 10/06/17 10/06/17 10/06/17 07:00 15:00 23:00 07:00 15:00 23:00 Intake Total 0 ml Balance 0 ml Intake Oral 0 ml # Voids 1 3 Result Diagram: 10/06/1752510/06/17525 Objective Remarks GENERAL: NAD, A&Ox3 HEAD: Normocephalic. NECK: Supple, trachea midline. No lymphadenopathy. EYES: No scleral icterus. No injection or drainage. CARDIOVASCULAR: Regular rate and rhythm without murmurs, gallops, or rubs. RESPIRATORY: Breath sounds equal bilaterally. No accessory muscle use. GASTROINTESTINAL: Abdomen soft, non-tender, nondistended. MUSCULOSKELETAL: No cyanosis, or edema. SKIN: Warm and dry. NEURO: No focal neurological deficitis. A/P Problem List: (1) Anemia ICD Code: D64.9 - Anemia, unspecified Status: Acute (2) GI bleed ICD Code: K92.2 - Gastrointestinal hemorrhage, unspecified Status: Acute (3) Back pain ICD Code: M54.9 - Dorsalgia, unspecified (4) Hyperlipidemia ICD Code: E78.5 - Hyperlipidemia, unspecified (5) Afib ICD Code: I48.91 - Unspecified atrial fibrillation Assessment and Plan Assessment and plan 82-year-old female admitted secondary to GI bleed with hematemesis GI bleed Hematemesis This has improved No further hematemesis this morning Continue to monitor for recurrence GI following Acute blood loss anemia 2 units PRBC transfused 10/06/17 Follow hemoglobin levels Atrial fibrillation Continue digoxin Back pain Continue [place] Continue gabapentin Hyperlipidemia Continue lovastatin DVT prophylaxis SCDs Problem Qualifiers (1) Anemia: Qualified Codes: D64.9 - Anemia, unspecified (2) GI bleed: Qualified Codes: K92.2 - Gastrointestinal hemorrhage, unspecified Montana Mckeon MD Oct 06, 2017 14:28
[2017-10-06 18:32] LABS: REVIEW FLAG FINAL
[2017-10-06 18:34] LABS: HEMATOCRIT 20.4 % (35.0-46.0)
[2017-10-07] VITALS (15 sets, daily range): BP systolic 91–122; BP diastolic 50–72; PULSE 68–130; RESP 16–20; TEMP 98.2–98.8; O2SAT 96–100
[2017-10-07 00:55] LABS: HEMATOCRIT 25.5 % (35.0-46.0); REVIEW FLAG FINAL
[2017-10-07] MEDS ORDERED: SODIUM CHLORID 0.9% 500 ML INJ 500 ML IV ONE (01:15)
[2017-10-07] MEDS ORDERED: METOPROLOL TARTRATE 25 MG TAB PO PRN (02:30)
[2017-10-07] MEDS ORDERED: LACTATED RINGER'S 1000 ML IV PRN (02:30)
[2017-10-07] MEDS ORDERED: SODIUM CHLORID 0.9% 500 ML IV PRN (02:30)
[2017-10-07] MEDS ORDERED: INSULIN HUMAN REGULAR 1,000 UNITS/10 ML VIAL SQ PRN (02:30)
[2017-10-07] MEDS ORDERED: CHLORHEXIDINE GLUCONATE 2 % 1 PACK (2 CLOTHS) TOPICAL PRN (02:30)
[2017-10-07] MEDS ORDERED: POVIDONE IODINE 5% (ANTISEPSIS KIT) 4 APPLICATIONS EACH NARE PRN (02:30)
[2017-10-07] MEDS: SODIUM CHLOR 0.9% 1000 ML INJ 1,000 ML IV SCH ×2 (06:05→19:13)
[2017-10-07] MEDS: SODIUM CHLORIDE 0.9% FLUSH 10 ML FLUSH IV FLUSH SCH ×2 (09:00→21:00)
[2017-10-07 09:27] LABS: AUTOMATED NEUTROPHIL # 6.4 TH/MM3 (1.8-7.7); BASOPHIL % 0.4 % (0.0-2.0); EOSINOPHIL # 0.2 TH/MM3 (0-0.4); EOSINOPHIL % 1.6 % (0.0-4.0); HEMATOCRIT 22.5 % (35.0-46.0); HEMO FLAGS DIFF FINAL; LYMPH % 29.3 % (9.0-44.0); LYMPHOCYTE # 3.1 TH/MM3 (1.0-4.8); MEAN CELL VOLUME 90.8 FL (80.0-100.0); MEAN CORPUSCULAR HEMOGLOBIN 32.4 PG (27.0-34.0); MEAN CORPUSCULAR HGB CONC 35.6 % (32.0-36.0); MONO % 7.8 % (0.0-8.0); NEUT % 60.9 % (16.0-70.0); PLATELET COUNT 159 TH/MM3 (150-450); RED BLOOD COUNT 2.48 MIL/MM3 (4.00-5.30); RED CELL DISTRIBUTION WIDTH 13.9 % (11.6-17.2); WHITE BLOOD COUNT 10.5 TH/MM3 (4.0-11.0)
--- NOTE | 2017-10-07 10:56 | HHI.GIFU ---
Subjective Remarks Patient comfortable in bed denies any pain or shortness of breath but is found to be hypotensive and tachycardic and so anesthesia has canceled the procedure for today Objective Vitals I&O Vital Signs Date Time Temp Pulse Resp B/P (MAP) Pulse Ox O2 Delivery O2 Flow Rate FiO2 10/07/17 10:07 130 20 104/65 (78) 96 10/07/17 08:00 98.2 102 17 105/59 (74) 99 10/07/17 04:00 98.8 97 20 109/56 (73) 98 10/07/17 00:00 98.6 129 20 101/58 (72) 99 10/06/17 20:00 151 10/06/17 19:55 97.5 81 18 117/57 (77) 100 10/06/17 19:25 98.3 87 18 108/51 100 10/06/17 17:11 18 10/06/17 15:54 98.3 99 18 100/53 (69) 100 10/06/17 15:52 99 18 100/52 100 10/06/17 15:37 98.3 93 18 112/55 100 10/06/17 12:06 98.8 93 16 103/54 (70) 100 10/06/17 10:56 79 I/O 10/06/17 10/06/17 10/06/17 10/07/17 10/07/17 10/07/17 07:00 15:00 23:00 07:00 15:00 23:00 Intake Total 0 ml 1015 ml 1739 ml Balance 0 ml 1015 ml 1739 ml Intake Oral 0 ml 180 ml 240 ml IV Total 1499 ml Packed Cells 800 ml Blood Product IV Normal Saline Flush 35 ml # Voids 3 2 4 1 # Bowel Movements 0 0 Laboratory Laboratory Tests Test 10/06/17 17:59 10/07/17 00:44 10/07/17 08:51 Hemoglobin 7.0 8.8 8.0 Hematocrit 20.4 25.5 22.5 White Blood Count 10.5 Red Blood Count 2.48 Mean Corpuscular Volume 90.8 Mean Corpuscular Hemoglobin 32.4 Mean Corpuscular Hemoglobin Concent 35.6 Red Cell Distribution Width 13.9 Platelet Count 159 Mean Platelet Volume 8.3 Neutrophils (%) (Auto) 60.9 Lymphocytes (%) (Auto) 29.3 Monocytes (%) (Auto) 7.8 Eosinophils (%) (Auto) 1.6 Basophils (%) (Auto) 0.4 Neutrophils # (Auto) 6.4 Lymphocytes # (Auto) 3.1 Monocytes # (Auto) 0.8 Eosinophils # (Auto) 0.2 Basophils # (Auto) 0.0 CBC Comment DIFF FINAL Differential Comment Imaging Last Impressions Abdomen/Pelvis CT 10/05/17 1026 Signed Impressions: Service Date/Time: Thursday, October 05, 2017 12:23 - CONCLUSION: 1. Isolated, irregular 1.3 cm gallstone in the gallbladder lumen. Mild gallbladder distention but no pericholecystic fluid. 2. Mild, diffuse hepatic fatty infiltration 3. Mild distention of small bowel loops particularly in the left upper abdominal quadrant. Pattern is nonspecific but does not appear to represent obstruction. This could be secondary to a focal hypodynamic ileus. 4. S-shaped scoliosis of the thoracolumbar spine. Minimal scarring or atelectasis above the left hemidiaphragm. . Kyrie Tejeda MD Head CT 10/05/17 1021 Signed Impressions: Service Date/Time: Thursday, October 05, 2017 12:17 - CONCLUSION: 1. Minimal degenerative changes with some periventricular small vessel ischemic demyelination around the frontal horns of the lateral ventricles. 2. Benign calcification in the subcutaneous tissues of the right frontoparietal region. 3. Nothing acute.. Kyrie Tejeda MD Chest X-Ray 10/05/17 1021 Signed Impressions: Service Date/Time: Thursday, October 05, 2017 10:24 - CONCLUSION: Mild atelectasis versus scarring left lung base. No other evidence of acute process. Blaine Parra MD Physical Exam HEENT:normocephalic; atraumatic; no jaundice. Throat is clear. NECK: Neck is supple, CHEST: Chest is clear to auscultation and percussion. CARDIAC: Irregularly irregular. ABDOMEN: Soft, nondistended, nontender; no hepatosplenomegaly; bowel sounds are present in all four quadrants. EXTREMITIES: No clubbing, cyanosis, or edema. SKIN: Normal; no rash; no jaundice. EQUINE BREEDER: No focal deficits; alert and oriented times three. Assessment and Plan Plan ASSESSMENT: - Upper GIB with hematemesis (black) and dark stool. Not on blood thinners, no NSAIDs, no ETOH. Decreased appetite and nausea, generalized weakness that has progressively been getting worse since . Yesterday started vomiting black gastric secretions and passing dark loose stool. HH dropped from 9.3/27.6 to 7.3/21.3. Not on PPI. NPO. - Anemia, acute blood loss. HH dropped 9.3/27.6 to 7.3/21.3. 2 units PRBC ordered. - Atrial fibrillation (not on blood thinners), HTN, depression/anxiety, chronic pain per attending. PLAN: - Plan for EGD once cleared by senior trial attorney - Obtain consents - Clear liquids - NPO after MN -Continue PPI -Monitor labs and transfuse as needed - CBC, BMP in am Carl Babin MD Oct 07, 2017 10:56
[2017-10-07] MEDS ORDERED: DIGOXIN 0.5 MG/2 ML VIAL IV PUSH ONE (11:00)
[2017-10-07 11:34] LABS: FREE T3 0.67 PG/ML (2.18-3.98); THYROXINE (T4) 5.1 MCG/DL (4.8-13.9)
[2017-10-07 11:39] LABS: BICARBONATE 20.9 MEQ/L (21.0-32.0); POTASSIUM 3.6 MEQ/L (3.5-5.1); TOTAL BILIRUBIN ADULT 0.7 MG/DL (0.2-1.0)
[2017-10-07] MEDS: PANTOPRAZOLE INJ 80 MG in SODIUM CHLORIDE 0.9% INJ 100 ML IV SCH ×2 (11:55→22:40)
--- NOTE | 2017-10-07 16:19 | HHI.PR ---
Subjective Remarks EGD Pending. EGD cancelled today due to an onset of A-fib RVR at procedure. Missed dosings of digoxin while on NPO status may have been contributory. She has a history of A-fib at baseline and takes only PO digoxin for this. Objective Vital Signs Date Time Temp Pulse Resp B/P (MAP) Pulse Ox O2 Delivery O2 Flow Rate FiO2 10/07/17 12:05 117 121/72 (88) 10/07/17 12:00 98.2 114 18 110/50 (70) 99 10/07/17 11:53 111 94/58 (70) 10/07/17 11:51 115 91/50 (64) 10/07/17 11:47 123 97/51 (66) 10/07/17 11:45 108 100/57 (71) 10/07/17 10:07 130 20 104/65 (78) 96 10/07/17 08:00 98.2 102 17 105/59 (74) 99 10/07/17 04:00 98.8 97 20 109/56 (73) 98 10/07/17 00:00 98.6 129 20 101/58 (72) 99 10/06/17 20:00 151 10/06/17 19:55 97.5 81 18 117/57 (77) 100 10/06/17 19:25 98.3 87 18 108/51 100 10/06/17 17:11 18 I/O 10/06/17 10/06/17 10/06/17 10/07/17 10/07/17 10/07/17 07:00 15:00 23:00 07:00 15:00 23:00 Intake Total 0 ml 1015 ml 1739 ml Balance 0 ml 1015 ml 1739 ml Intake Oral 0 ml 180 ml 240 ml IV Total 1499 ml Packed Cells 800 ml Blood Product IV Normal Saline Flush 35 ml # Voids 3 2 4 1 # Bowel Movements 0 0 Result Diagram: 10/07/1785010/07/17850 Objective Remarks GENERAL: NAD, A&Ox3 HEAD: Normocephalic. NECK: Supple, trachea midline. No lymphadenopathy. EYES: No scleral icterus. No injection or drainage. CARDIOVASCULAR: Regular rate and rhythm without murmurs, gallops, or rubs. RESPIRATORY: Breath sounds equal bilaterally. No accessory muscle use. GASTROINTESTINAL: Abdomen soft, non-tender, nondistended. MUSCULOSKELETAL: No cyanosis, or edema. SKIN: Warm and dry. NEURO: No focal neurological deficitis. A/P Problem List: (1) Anemia ICD Code: D64.9 - Anemia, unspecified Status: Acute (2) GI bleed ICD Code: K92.2 - Gastrointestinal hemorrhage, unspecified Status: Acute (3) Back pain ICD Code: M54.9 - Dorsalgia, unspecified (4) Hyperlipidemia ICD Code: E78.5 - Hyperlipidemia, unspecified (5) Afib ICD Code: I48.91 - Unspecified atrial fibrillation Assessment and Plan Assessment and plan 82-year-old female admitted secondary to GI bleed with hematemesis A-fib RVR Digoxin resumed in IV form Cardiology consult for clearance for EGD procedure GI bleed Hematemesis This has improved No further hematemesis this morning Continue to monitor for recurrence GI following Acute blood loss anemia 2 units PRBC transfused 10/06/17 Follow hemoglobin levels Atrial fibrillation Continue digoxin Back pain Continue [place] Continue gabapentin Hyperlipidemia Continue lovastatin DVT prophylaxis SCDs Problem Qualifiers (1) Anemia: Qualified Codes: D64.9 - Anemia, unspecified (2) GI bleed: Qualified Codes: K92.2 - Gastrointestinal hemorrhage, unspecified Montana Mckeon MD Oct 07, 2017 16:19
[2017-10-07] MEDS: ACETAMINOPHEN/HYDROcodone 325 MG/7.5 MG TAB PO PRN ×2 (17:18→23:29)
[2017-10-07] MEDS: DILTIAZEM HCL 30 MG TAB PO SCH (21:23)
[2017-10-08] VITALS (9 sets, daily range): BP systolic 93–153; BP diastolic 51–65; PULSE 59–87; RESP 16–22; TEMP 97.4–98.7; O2SAT 94–98
[2017-10-08] MEDS: SODIUM CHLOR 0.9% 1000 ML INJ 1,000 ML IV SCH ×3 (03:46→23:01)
[2017-10-08] MEDS: DILTIAZEM HCL 30 MG TAB PO SCH ×4 (03:46→23:01)
--- NOTE | 2017-10-08 07:36 | PD.CARD.PN ---
Subjective Subjective Remarks PT without CV complaints Objective Medications Current Medications Medications (Trade) Dose Ordered Sig/Steve Route Start Time Stop Time Status Last Admin Sodium Chloride 1,000 ml @ 100 mls/hr Q10H IV 10/05/17 14:34 10/08/17 03:46 (NS Flush) 2 ml UNSCH PRN IV FLUSH 10/05/17 14:45 (NS Flush) 2 ml BID IV FLUSH 10/05/17 21:00 10/06/17 22:28 (Tylenol) 650 mg Q4H PRN PO 10/05/17 14:45 (Zofran Inj) 4 mg Q6H PRN IVP 10/05/17 14:45 10/06/17 22:28 (Narcan Inj) 0.4 mg UNSCH PRN IV PUSH 10/05/17 14:45 ([place] 7.5-325 Mg) 1 tab Q6H PRN PO 10/05/17 19:45 10/07/17 23:29 Pantoprazole Sodium 80 mg/ Sodium Chloride 100 ml @ 10 mls/hr CONTINUOUS IV 10/06/17 13:30 10/07/17 22:40 Lactated Ringer's 1,000 ml @ 30 mls/hr Q24H PRN IV 10/07/17 02:30 10/10/17 02:29 Sodium Chloride 500 ml @ 30 mls/hr [id number] PRN IV 10/07/17 02:30 10/10/17 02:29 (Lopressor) 25 mg TONG HOOKER PRN PO 10/07/17 02:30 10/10/17 02:29 (Betadine 5% Antisepsis Kit) 1 applic TONG HOOKER PRN EACH NARE 10/07/17 02:30 10/10/17 02:29 (Chlorhexidine 2% Cloth) 3 pack TONG HOOKER PRN TOPICAL 10/07/17 02:30 10/10/17 02:29 (NovoLIN R INJ) See Protocol Table ... TONG HOOKER PRN SQ 10/07/17 02:30 10/10/17 02:29 (Lanoxin Inj) 0.125 mg DAILY IV PUSH 10/08/17 09:00 (Cardizem) 30 mg Q6H PO 10/07/17 22:00 10/08/17 03:46 Vital Signs / I&O Vital Signs Date Time Temp Pulse Resp B/P (MAP) Pulse Ox O2 Delivery O2 Flow Rate FiO2 10/08/17 04:54 97.4 59 16 93/54 (67) 98 10/08/17 04:00 Nasal Cannula 2.00 10/08/17 00:00 Nasal Cannula 2.00 10/07/17 23:45 98.7 68 16 104/54 (71) 99 10/07/17 20:20 98.6 74 16 122/58 (79) 100 10/07/17 20:00 Nasal Cannula 2.00 10/07/17 19:54 91 10/07/17 16:00 98.8 87 18 118/58 (78) 99 10/07/17 12:05 117 121/72 (88) 10/07/17 12:00 98.2 114 18 110/50 (70) 99 10/07/17 11:53 111 94/58 (70) 10/07/17 11:51 115 91/50 (64) 10/07/17 11:47 123 97/51 (66) 10/07/17 11:45 108 100/57 (71) 10/07/17 10:07 130 20 104/65 (78) 96 10/07/17 08:15 102 10/07/17 08:00 102 10/07/17 08:00 98.2 102 17 105/59 (74) 99 10/07/17 08:00 102 I/O 10/07/17 10/07/17 10/07/17 10/08/17 10/08/17 10/08/17 07:00 15:00 23:00 07:00 15:00 23:00 Intake Total 1739 ml 480 ml 618 ml 967 ml Balance 1739 ml 480 ml 618 ml 967 ml Intake Oral 240 ml 480 ml 480 ml 0 ml IV Total 1499 ml 138 ml 967 ml # Voids 4 2 7 # Bowel Movements 0 0 Physical Exam GENERAL: Well developed, well nourished. No acute distress. HEENT: Jugular venous pressure is normal. CHEST: Lungs clear to auscultation bilaterally. Unlabored respiratory effort. CARDIAC: irregular rate and rhythm without S3, S4, or murmur. ABDOMEN: Soft, nontender, no hepatosplenomegaly. Bowel sounds present. EXTREMITIES: No clubbing, cyanosis, or edema. Laboratory Laboratory Tests Test 10/07/17 08:51 White Blood Count 10.5 TH/MM3 Red Blood Count 2.48 MIL/MM3 Hemoglobin 8.0 GM/DL Hematocrit 22.5 % Mean Corpuscular Volume 90.8 FL Mean Corpuscular Hemoglobin 32.4 PG Mean Corpuscular Hemoglobin Concent 35.6 % Red Cell Distribution Width 13.9 % Platelet Count 159 TH/MM3 Mean Platelet Volume 8.3 FL Neutrophils (%) (Auto) 60.9 % Lymphocytes (%) (Auto) 29.3 % Monocytes (%) (Auto) 7.8 % Eosinophils (%) (Auto) 1.6 % Basophils (%) (Auto) 0.4 % Neutrophils # (Auto) 6.4 TH/MM3 Lymphocytes # (Auto) 3.1 TH/MM3 Monocytes # (Auto) 0.8 TH/MM3 Eosinophils # (Auto) 0.2 TH/MM3 Basophils # (Auto) 0.0 TH/MM3 CBC Comment DIFF FINAL Differential Comment Blood Urea Nitrogen 55 MG/DL Creatinine 0.43 MG/DL Random Glucose 91 MG/DL Total Protein 4.2 GM/DL Albumin 2.3 GM/DL Calcium Level 7.3 MG/DL Alkaline Phosphatase 23 U/L Aspartate Amino Transf (AST/SGOT) 18 U/L Alanine Aminotransferase (ALT/SGPT) 17 U/L Total Bilirubin 0.7 MG/DL Sodium Level 145 MEQ/L Potassium Level 3.6 MEQ/L Chloride Level 117 MEQ/L Carbon Dioxide Level 20.9 MEQ/L Anion Gap 7 MEQ/L Estimat Glomerular Filtration Rate 141 ML/MIN Protein Corrected Calcium 9.0 MG/DL Thyroxine (T4) 5.1 MCG/DL Free Triiodothyronine (T3) pg/dL 0.67 PG/ML Thyroid Stimulating Hormone 3rd Gen 3.140 uIU/ML Imaging Last 72 hours Impressions Abdomen/Pelvis CT 10/05/17 1026 Signed Impressions: Service Date/Time: Thursday, October 05, 2017 12:23 - CONCLUSION: 1. Isolated, irregular 1.3 cm gallstone in the gallbladder lumen. Mild gallbladder distention but no pericholecystic fluid. 2. Mild, diffuse hepatic fatty infiltration 3. Mild distention of small bowel loops particularly in the left upper abdominal quadrant. Pattern is nonspecific but does not appear to represent obstruction. This could be secondary to a focal hypodynamic ileus. 4. S-shaped scoliosis of the thoracolumbar spine. Minimal scarring or atelectasis above the left hemidiaphragm. . Kyrie Tejeda MD Head CT 10/05/17 1021 Signed Impressions: Service Date/Time: Thursday, October 05, 2017 12:17 - CONCLUSION: 1. Minimal degenerative changes with some periventricular small vessel ischemic demyelination around the frontal horns of the lateral ventricles. 2. Benign calcification in the subcutaneous tissues of the right frontoparietal region. 3. Nothing acute.. Kyrie Tejeda MD Chest X-Ray 10/05/17 1021 Signed Impressions: Service Date/Time: Thursday, October 05, 2017 10:24 - CONCLUSION: Mild atelectasis versus scarring left lung base. No other evidence of acute process. Blaine Parra MD Assessment and Plan Assessment and Plan AF- rate controlled with diltiazem GIB- ok for EGD- colonoscopy from CV perspective Lyric Barton MD Oct 08, 2017 07:36
--- NOTE | 2017-10-08 08:05 | MB ---
cc: MACARIO THOMAS MD DATE OF CONSULTATION 10/07/2017 REASON FOR CONSULTATION Atrial fibrillation with rapid ventricular rate. HISTORY OF THE PRESENT ILLNESS Ms. Barron is a pleasant 82-year-old patient of my partner, Dr. Barragan. She does have a known history of hypertension, hyperlipidemia, and atrial fibrillation. She presented with bleeding from both the rectum and vomiting up blood. Cardiology subsequently was consulted when the patient was in atrial fibrillation with rapid ventricular rate prior to her EGD. PAST MEDICAL HISTORY Significant for: 1. Anxiety. 2. Atrial fibrillation with a CHADSVASC score of 4, age greater than 75, female and hypertension. She had been refusing Coumadin or Xarelto and had been on aspirin. 3. Chronic pain. 4. Hypertension. 5. Hyperlipidemia. 6. Hypothyroidism. 7. White blood cell disorder. PAST SURGICAL HISTORY Includes: 1. Back surgery. 2. Hysterectomy. 3. Laser knee surgery bilaterally. SOCIAL HISTORY The patient has never smoked and does not use any alcohol. FAMILY HISTORY Positive for cerebrovascular accident and coronary artery disease. ALLERGIES NO KNOWN DRUG ALLERGIES. MEDICATIONS Outpatient medications include: 1. Lanoxin. 2. Celexa. 3. Gabapentin. 4. Lovastatin. 5. [place]. REVIEW OF SYSTEMS Except as mentioned in the history of present illness all 12 systems are negative. PHYSICAL EXAMINATION VITAL SIGNS: 98, 121/72. GENERAL: She is a thin, elderly female who is in no apparent distress. NECK: Free from JVD. LUNGS: Bilaterally clear to auscultation. CARDIOVASCULAR: On examination she has an irregularly irregular rhythm. No rubs or gallops appreciated. ABDOMEN: Soft. EXTREMITIES: Are free from edema. LABORATORY DATA Lab values significant for hemoglobin of 8.0 up from 7.0. Creatinine is 0.43. IMPRESSION 1. Atrial fibrillation - the patient does have a history of the same. At this point I would add Diltiazem to assist with heart rate control. 2. Gastrointestinal bleed - if the patient's heart rate is reasonably controlled on the Diltiazem it would be reasonable to proceed from a cardiovascular perspective. Macario Thomas M.D. SAMY/ARLEN /6:46 PM /8:08 AM
[2017-10-08] MEDS ORDERED: DIGOXIN 0.5 MG/2 ML VIAL IV PUSH SCH (09:00)
[2017-10-08] MEDS: SODIUM CHLORIDE 0.9% FLUSH 10 ML FLUSH IV FLUSH SCH ×2 (09:37→21:00)
[2017-10-08] MEDS: ACETAMINOPHEN/HYDROcodone 325 MG/7.5 MG TAB PO PRN ×3 (09:37→23:57)
[2017-10-08] MEDS: PANTOPRAZOLE INJ 80 MG in SODIUM CHLORIDE 0.9% INJ 100 ML IV SCH ×2 (11:03→23:56)
--- NOTE | 2017-10-08 12:10 | HHI.PR ---
Subjective Remarks EGD planned for tomorrow. No acute complaints from the patient. Cardiac clearance obtained for procedure. Objective Vital Signs Date Time Temp Pulse Resp B/P (MAP) Pulse Ox O2 Delivery O2 Flow Rate FiO2 10/08/17 11:01 18 10/08/17 09:40 64 18 111/53 (72) 97 10/08/17 08:00 98.0 64 18 100/51 (67) 97 10/08/17 04:54 97.4 59 16 93/54 (67) 98 10/08/17 04:00 Nasal Cannula 2.00 10/08/17 00:00 Nasal Cannula 2.00 10/07/17 23:45 98.7 68 16 104/54 (71) 99 10/07/17 20:20 98.6 74 16 122/58 (79) 100 10/07/17 20:00 Nasal Cannula 2.00 10/07/17 19:54 91 10/07/17 16:00 98.8 87 18 118/58 (78) 99 I/O 10/07/17 10/07/17 10/07/17 10/08/17 10/08/17 10/08/17 07:00 15:00 23:00 07:00 15:00 23:00 Intake Total 1739 ml 480 ml 618 ml 967 ml Balance 1739 ml 480 ml 618 ml 967 ml Intake Oral 240 ml 480 ml 480 ml 0 ml IV Total 1499 ml 138 ml 967 ml # Voids 4 2 7 # Bowel Movements 0 0 Result Diagram: 10/07/1751 10/07/17 0851 Objective Remarks GENERAL: NAD, A&Ox3 HEAD: Normocephalic. NECK: Supple, trachea midline. No lymphadenopathy. EYES: No scleral icterus. No injection or drainage. CARDIOVASCULAR: Regular rate and rhythm without murmurs, gallops, or rubs. RESPIRATORY: Breath sounds equal bilaterally. No accessory muscle use. GASTROINTESTINAL: Abdomen soft, non-tender, nondistended. MUSCULOSKELETAL: No cyanosis, or edema. SKIN: Warm and dry. NEURO: No focal neurological deficitis. A/P Problem List: (1) Anemia ICD Code: D64.9 - Anemia, unspecified Status: Acute (2) GI bleed ICD Code: K92.2 - Gastrointestinal hemorrhage, unspecified Status: Acute (3) Back pain ICD Code: M54.9 - Dorsalgia, unspecified (4) Hyperlipidemia ICD Code: E78.5 - Hyperlipidemia, unspecified (5) Afib ICD Code: I48.91 - Unspecified atrial fibrillation Assessment and Plan Assessment and plan 82-year-old female admitted secondary to GI bleed with hematemesis. Cardiac clearance obtained for EGD tomorrow. Labs are.. Slight decline in hemoglobin. Monitor further. Labs ordered. A-fib RVR Digoxin resumed in IV form Cardiology consult for clearance for EGD procedure GI bleed Hematemesis This has improved No further hematemesis this morning Continue to monitor for recurrence GI following Acute blood loss anemia 2 units PRBC transfused 10/06/17 Follow hemoglobin levels Atrial fibrillation Continue digoxin Back pain Continue [place] Continue gabapentin Hyperlipidemia Continue lovastatin DVT prophylaxis SCDs Problem Qualifiers (1) Anemia: Qualified Codes: D64.9 - Anemia, unspecified (2) GI bleed: Qualified Codes: K92.2 - Gastrointestinal hemorrhage, unspecified Montana Mckeon MD Oct 08, 2017 12:10
--- NOTE | 2017-10-08 14:33 | EKG ---
Date Performed: 10/07/2017 Time Performed: 10:33:39 PTAGE: 82 years EKG: ATRIAL FIBRILLATION WITH RAPID VENTRICULAR RESPONSE NONSPECIFIC ST & T-WAVE ABNORMALITY ABN ORMAL RHYTHM ECG INTERPRETATION BASED ON A DEFAULT AGE OF 40 YEARS PREVIOUS TRACING : 10/05/2017 10.48 COMPARED TO PREVIOUS TRACING ATRIAL FIBRILLATION WITH RAPID VENTRICULAR RESPONSES NEW DOCTOR: Clovis Bee Interpretating Date/Time 10/08/2017 14:26:55
--- NOTE | 2017-10-08 16:40 | HHI.GIFU ---
Subjective Remarks Resting in bed. No active GI bleeding. Denies nausea, abdominal pain. (Cammie Patterson) Objective Vitals I&O Vital Signs Date Time Temp Pulse Resp B/P (MAP) Pulse Ox O2 Delivery O2 Flow Rate FiO2 10/08/17 16:00 98.0 65 18 117/58 (77) 95 10/08/17 12:00 98.4 71 18 119/58 (78) 95 10/08/17 12:00 98.4 87 22 135/62 (86) 94 10/08/17 11:01 18 10/08/17 09:40 64 18 111/53 (72) 97 10/08/17 08:00 98.0 64 18 100/51 (67) 97 10/08/17 04:54 97.4 59 16 93/54 (67) 98 10/08/17 04:00 Nasal Cannula 2.00 10/08/17 00:00 Nasal Cannula 2.00 10/07/17 23:45 98.7 68 16 104/54 (71) 99 10/07/17 20:20 98.6 74 16 122/58 (79) 100 10/07/17 20:00 Nasal Cannula 2.00 10/07/17 19:54 91 I/O 10/07/17 10/07/17 10/07/17 10/08/17 10/08/17 10/08/17 07:00 15:00 23:00 07:00 15:00 23:00 Intake Total 1739 ml 480 ml 618 ml 967 ml Balance 1739 ml 480 ml 618 ml 967 ml Intake Oral 240 ml 480 ml 480 ml 0 ml IV Total 1499 ml 138 ml 967 ml # Voids 4 2 7 # Bowel Movements 0 0 Imaging Last Impressions Abdomen/Pelvis CT 10/05/17 1026 Signed Impressions: Service Date/Time: Thursday, October 05, 2017 12:23 - CONCLUSION: 1. Isolated, irregular 1.3 cm gallstone in the gallbladder lumen. Mild gallbladder distention but no pericholecystic fluid. 2. Mild, diffuse hepatic fatty infiltration 3. Mild distention of small bowel loops particularly in the left upper abdominal quadrant. Pattern is nonspecific but does not appear to represent obstruction. This could be secondary to a focal hypodynamic ileus. 4. S-shaped scoliosis of the thoracolumbar spine. Minimal scarring or atelectasis above the left hemidiaphragm. . Kyrie Tejeda MD Head CT 10/05/17 1021 Signed Impressions: Service Date/Time: Thursday, October 05, 2017 12:17 - CONCLUSION: 1. Minimal degenerative changes with some periventricular small vessel ischemic demyelination around the frontal horns of the lateral ventricles. 2. Benign calcification in the subcutaneous tissues of the right frontoparietal region. 3. Nothing acute.. Kyrie Tejeda MD Chest X-Ray 10/05/17 1021 Signed Impressions: Service Date/Time: Thursday, October 05, 2017 10:24 - CONCLUSION: Mild atelectasis versus scarring left lung base. No other evidence of acute process. Blaine Parra MD Physical Exam HEENT: Normocephalic; atraumatic; no jaundice. CHEST: CTA CARDIAC: Irregular ABDOMEN: Soft, nondistended, nontender; no hepatosplenomegaly; bowel sounds are present in all four quadrants. EXTREMITIES: No clubbing, cyanosis, or edema. SKIN: Normal; no rash; no jaundice. TEACHER DRAMA: No focal deficits; alert and oriented times three. (Cammie Patterson [facility]) Assessment and Plan Plan ASSESSMENT: - Upper GIB with hematemesis (black) and dark stool. Not on blood thinners, no NSAIDs, no ETOH. Decreased appetite and nausea, generalized weakness that has progressively been getting worse since . She started vomiting black gastric secretions and passing dark loose stool on Saturday. Plan was for EGD yesterday, but it was cancelled by anesthesia for tachycardia and hypotension. She was evaluated by cardiology and she has been cleared by cardiology for endoscopic procedures. She is not currently having any active bleeding. S/P 2 units PRBC. HH 8.0/22.5 Will schedule EGD for tomorrow am. PPI - Anemia, acute blood loss. H S/P 2 units PRBC. HH 8.0/22.5 - Afib with tachycardia, hypotension. Improved. Now rate controlled. S/P cardiology eval, cleared for endoscopy. - HTN, depression/anxiety, chronic pain per attending. PLAN: - Plan for EGD in am (Cleared by cardiology) - Obtain consents - NPO after MN - Continue PPI - Monitor labs and transfuse as needed - CBC, BMP in am - Supportive care - Pt seen and examined by Dr. Babin and myself and this note is written on his behalf (Cammie Patterson) Physician Comments Patient seen and examined Agree with above Continue with current supportive care Monitor labs EGD tomorrow (Carl Babin MD) Cammie Patterson Oct 08, 2017 16:40 Carl Babin MD Oct 08, 2017 23:13
[2017-10-08 19:25] LABS: MEAN CELL VOLUME 93.6 FL (80.0-100.0); MEAN CORPUSCULAR HEMOGLOBIN 32.9 PG (27.0-34.0); MEAN CORPUSCULAR HGB CONC 35.1 % (32.0-36.0); PLATELET COUNT 171 TH/MM3 (150-450); WHITE BLOOD COUNT 7.5 TH/MM3 (4.0-11.0)
[2017-10-08 19:29] LABS: REVIEW FLAG FINAL
[2017-10-08 19:31] LABS: HEMATOCRIT 19.6 % (35.0-46.0)
[2017-10-08 19:48] LABS: BICARBONATE 23.7 MEQ/L (21.0-32.0); POTASSIUM 3.2 MEQ/L (3.5-5.1)
[2017-10-08] MEDS ORDERED: SODIUM CHLOR 0.9% 250 ML INJ 250 ML IV ONE (20:00)
[2017-10-08] MEDS ORDERED: FUROSEMIDE 20 MG/2 ML VIAL IV PUSH ONE (20:00)
[2017-10-08] MEDS ORDERED: POTASSIUM CHLORIDE 25 MEQ EFFERVESCENT TAB PO ONE (20:00)
[2017-10-08 20:19] LABS: CALCIUM-PROTEIN CORRECTED 8.9 MG/DL (8.5-10.1)
[2017-10-09] VITALS (11 sets, daily range): BP systolic 127–166; BP diastolic 61–71; PULSE 61–83; RESP 16–20; TEMP 98–99; O2SAT 92–98
[2017-10-09] MEDS: DILTIAZEM HCL 30 MG TAB PO SCH ×4 (03:57→20:52)
--- NOTE | 2017-10-09 07:34 | PD.CARD.PN ---
Subjective Subjective Remarks PT without CV complaints Objective Medications Current Medications Medications (Trade) Dose Ordered Sig/Steve Route Start Time Stop Time Status Last Admin Sodium Chloride 1,000 ml @ 100 mls/hr Q10H IV 10/05/17 14:34 10/08/17 23:01 (NS Flush) 2 ml UNSCH PRN IV FLUSH 10/05/17 14:45 (NS Flush) 2 ml BID IV FLUSH 10/05/17 21:00 10/08/17 09:37 (Tylenol) 650 mg Q4H PRN PO 10/05/17 14:45 (Zofran Inj) 4 mg Q6H PRN IVP 10/05/17 14:45 10/06/17 22:28 (Narcan Inj) 0.4 mg UNSCH PRN IV PUSH 10/05/17 14:45 ([place] 7.5-325 Mg) 1 tab Q6H PRN PO 10/05/17 19:45 10/08/17 23:57 Pantoprazole Sodium 80 mg/ Sodium Chloride 100 ml @ 10 mls/hr CONTINUOUS IV 10/06/17 13:30 10/08/17 23:56 Lactated Ringer's 1,000 ml @ 30 mls/hr Q24H PRN IV 10/07/17 02:30 10/10/17 02:29 Sodium Chloride 500 ml @ 30 mls/hr [id number] PRN IV 10/07/17 02:30 10/10/17 02:29 (Lopressor) 25 mg [employer] PRN PO 10/07/17 02:30 10/10/17 02:29 (Betadine 5% Antisepsis Kit) 1 applic [employer] PRN EACH NARE 10/07/17 02:30 10/10/17 02:29 (Chlorhexidine 2% Cloth) 3 pack [employer] PRN TOPICAL 10/07/17 02:30 10/10/17 02:29 (NovoLIN R INJ) See Protocol Table ... [employer] PRN SQ 10/07/17 02:30 10/10/17 02:29 (Cardizem) 30 mg Q6H PO 10/07/17 22:00 10/09/17 03:57 Sodium Chloride 250 ml @ 15 mls/hr ONCE ONCE IV 10/08/17 20:00 10/09/17 12:39 Vital Signs / I&O Vital Signs Date Time Temp Pulse Resp B/P (MAP) Pulse Ox O2 Delivery O2 Flow Rate FiO2 10/09/17 06:35 99.0 67 16 153/70 (97) 98 10/09/17 04:09 98.3 70 16 140/71 96 10/09/17 03:36 Room Air 10/09/17 03:36 98.6 70 16 138/63 94 10/09/17 01:17 98.0 75 18 147/67 96 10/09/17 00:56 98.6 73 18 141/65 92 10/09/17 00:56 Room Air 10/08/17 23:42 Room Air 10/08/17 23:42 98.7 81 16 141/65 (90) 95 10/08/17 20:24 74 10/08/17 20:04 98.3 75 16 153/65 (94) 96 10/08/17 20:04 Room Air 10/08/17 17:15 18 10/08/17 16:30 98.3 66 18 109/54 (72) 96 10/08/17 16:00 98.0 65 18 117/58 (77) 95 10/08/17 12:00 98.4 71 18 119/58 (78) 95 10/08/17 12:00 98.4 87 22 135/62 (86) 94 10/08/17 09:40 64 18 111/53 (72) 97 10/08/17 08:00 98.0 64 18 100/51 (67) 97 I/O 10/08/17 10/08/17 10/08/17 10/09/17 10/09/17 10/09/17 07:00 15:00 23:00 07:00 15:00 23:00 Intake Total 967 ml 1360 ml 1752 ml Balance 967 ml 1360 ml 1752 ml Intake Oral 0 ml 1360 ml 570 ml IV Total 967 ml 782 ml Packed Cells 400 ml # Voids 7 3 8 # Bowel Movements 0 0 0 Physical Exam GENERAL: Well developed, well nourished. No acute distress. HEENT: Jugular venous pressure is normal. CHEST: Lungs clear to auscultation bilaterally. Unlabored respiratory effort. CARDIAC: irregular rate and rhythm without S3, S4, or murmur. ABDOMEN: Soft, nontender, no hepatosplenomegaly. Bowel sounds present. EXTREMITIES: No clubbing, cyanosis, or edema. Laboratory Laboratory Tests Test 10/08/17 18:57 White Blood Count 7.5 TH/MM3 Red Blood Count 2.10 MIL/MM3 Hemoglobin 6.9 GM/DL Hematocrit 19.6 % Mean Corpuscular Volume 93.6 FL Mean Corpuscular Hemoglobin 32.9 PG Mean Corpuscular Hemoglobin Concent 35.1 % Red Cell Distribution Width 14.0 % Platelet Count 171 TH/MM3 Mean Platelet Volume 8.4 FL Blood Urea Nitrogen 16 MG/DL Creatinine 0.52 MG/DL Random Glucose 103 MG/DL Total Protein 4.3 GM/DL Calcium Level 7.3 MG/DL Sodium Level 143 MEQ/L Potassium Level 3.2 MEQ/L Chloride Level 113 MEQ/L Carbon Dioxide Level 23.7 MEQ/L Anion Gap 6 MEQ/L Estimat Glomerular Filtration Rate 113 ML/MIN Protein Corrected Calcium 8.9 MG/DL Assessment and Plan Assessment and Plan AF- NSR on dilt -change to long acting after EGD GIB- ok for EGD- colonoscopy from CV perspective Lyirc Barton MD Oct 09, 2017 07:34
[2017-10-09] MEDS: ACETAMINOPHEN/HYDROcodone 325 MG/7.5 MG TAB PO PRN (08:59)
[2017-10-09] MEDS: SODIUM CHLORIDE 0.9% FLUSH 10 ML FLUSH IV FLUSH SCH ×2 (09:00→20:52)
[2017-10-09 09:48] LABS: BASOPHIL % 0.2 % (0.0-2.0); EOSINOPHIL # 0.3 TH/MM3 (0-0.4); EOSINOPHIL % 2.8 % (0.0-4.0); HEMATOCRIT 32.5 % (35.0-46.0); HEMO FLAGS DIFF FINAL; LYMPH % 17.9 % (9.0-44.0); MEAN CELL VOLUME 91.7 FL (80.0-100.0); MEAN CORPUSCULAR HEMOGLOBIN 32.7 PG (27.0-34.0); MEAN CORPUSCULAR HGB CONC 35.6 % (32.0-36.0); MONO % 5.9 % (0.0-8.0); NEUT % 73.2 % (16.0-70.0); PLATELET COUNT 195 TH/MM3 (150-450); RED BLOOD COUNT 3.55 MIL/MM3 (4.00-5.30); RED CELL DISTRIBUTION WIDTH 14.2 % (11.6-17.2); WHITE BLOOD COUNT 10.9 TH/MM3 (4.0-11.0)
[2017-10-09 10:16] LABS: ANION GAP 10 MEQ/L (5-15)
[2017-10-09 10:21] LABS: ALKALINE PHOSPHATASE 31 U/L (45-117); ALT (GPT) 22 U/L (10-53); AST (GOT) 25 U/L (15-37); BICARBONATE 26.5 MEQ/L (21.0-32.0); BLOOD UREA NITROGEN 10 MG/DL (7-18); CHLORIDE 104 MEQ/L (98-107); GLOMERULAR FILTRATION RATE 91 ML/MIN (>89); SODIUM (NA) 140 MEQ/L (136-145); TOTAL BILIRUBIN ADULT 1.7 MG/DL (0.2-1.0)
[2017-10-09 10:25] LABS: POTASSIUM 2.8 MEQ/L (3.5-5.1)
--- NOTE | 2017-10-09 12:47 | PD.PROCEDR ---
GI Procedure REFERRING PHYSICIAN Dr. Mckeon PROCEDURE PERFORMED EGD with biopsy INDICATION FOR PROCEDURE Anemia, GI bleed PROCEDURE: The procedure, risks and benefits were discussed with Ms. Barron and informed consent was obtained. Anesthesia sedated her with Diprivan. She was placed in the left lateral decubitus position. EGD: The Pentax videoscope was introduced through the oropharynx and advanced to the second portion of the duodenum under direct visualization. Retroflexion was performed in the stomach. FINDINGS: Esophagus this appeared to be normal Stomach there were 2 ulcers noted in the antrum clean-based no visible vessel these were biopsied the rest of the gastric mucosa was unremarkable Duodenum this was normal ESTIMATED BLOOD LOSS: None SPECIMENS REMOVED: Antral ulcers COMPLICATIONS: None IMPRESSION: Antral ulcers PLAN: Await biopsy Avoid NSAIDs and aspirin Protonix 40 mg twice a day EGD in 2 months Continue with supportive care If all is stable tomorrow patient may be discharged from a GI standpoint follow-up as an outpatient Carl Babin MD Oct 09, 2017 12:47
--- NOTE | 2017-10-09 14:56 | HHI.PR ---
Subjective Remarks EGD today shows two ulcers of the antrum of the stomach. This may have been the source of her bleeding. BID Protonix will be continued. Once blood counts stabalize she will be ready for discharge. last night a transfussion was needed due to presumed further bleeding. Objective Vital Signs Date Time Temp Pulse Resp B/P (MAP) Pulse Ox O2 Delivery O2 Flow Rate FiO2 10/09/17 12:55 97.9 68 20 137/71 (93) 98 10/09/17 08:00 98.0 64 20 150/66 (94) 95 10/09/17 08:00 83 10/09/17 07:00 Room Air 10/09/17 06:35 99.0 67 16 153/70 (97) 98 10/09/17 04:09 98.3 70 16 140/71 96 10/09/17 03:36 Room Air 10/09/17 03:36 98.6 70 16 138/63 94 10/09/17 01:17 98.0 75 18 147/67 96 10/09/17 00:56 98.6 73 18 141/65 92 10/09/17 00:56 Room Air 10/08/17 23:42 Room Air 10/08/17 23:42 98.7 81 16 141/65 (90) 95 10/08/17 20:24 74 10/08/17 20:04 98.3 75 16 153/65 (94) 96 10/08/17 20:04 Room Air 10/08/17 17:15 18 10/08/17 16:30 98.3 66 18 109/54 (72) 96 10/08/17 16:00 98.0 65 18 117/58 (77) 95 I/O 10/08/17 10/08/17 10/08/17 10/09/17 10/09/17 10/09/17 07:00 15:00 23:00 07:00 15:00 23:00 Intake Total 967 ml 1360 ml 2132 ml 500 ml Balance 967 ml 1360 ml 2132 ml 500 ml Intake Oral 0 ml 1360 ml 570 ml IV Total 967 ml 782 ml Packed Cells 750 ml Blood Product IV Normal Saline Flush 30 ml Other 500 ml # Voids 7 3 8 # Bowel Movements 0 0 0 Result Diagram: 10/09/17 0810 10/09/17 0810 Objective Remarks GENERAL: NAD, A&Ox3 HEAD: Normocephalic. NECK: Supple, trachea midline. No lymphadenopathy. EYES: No scleral icterus. No injection or drainage. CARDIOVASCULAR: Regular rate and rhythm without murmurs, gallops, or rubs. RESPIRATORY: Breath sounds equal bilaterally. No accessory muscle use. GASTROINTESTINAL: Abdomen soft, non-tender, nondistended. MUSCULOSKELETAL: No cyanosis, or edema. SKIN: Warm and dry. NEURO: No focal neurological deficitis. A/P Problem List: (1) Anemia ICD Code: D64.9 - Anemia, unspecified Status: Acute (2) GI bleed ICD Code: K92.2 - Gastrointestinal hemorrhage, unspecified Status: Acute (3) Back pain ICD Code: M54.9 - Dorsalgia, unspecified (4) Hyperlipidemia ICD Code: E78.5 - Hyperlipidemia, unspecified (5) Afib ICD Code: I48.91 - Unspecified atrial fibrillation Assessment and Plan Assessment and plan 82-year-old female admitted secondary to GI bleed with hematemesis. Cardiac clearance obtained for EGD tomorrow. Labs are.. Decline in hemoglobin overnight. Transfused overnight. Potassium levels are low this morning at 2.8. potassium replaced. Monitor further. Labs ordered. A-fib RVR Digoxin resumed in IV form Cardiology consult for clearance for EGD procedure GI bleed Hematemesis This has improved No further hematemesis this morning Continue to monitor for recurrence GI following Acute blood loss anemia 2 units PRBC transfused 10/06/17 Follow hemoglobin levels Atrial fibrillation Continue digoxin Back pain Continue [place] Continue gabapentin Hyperlipidemia Continue lovastatin DVT prophylaxis SCDs Problem Qualifiers (1) Anemia: Qualified Codes: D64.9 - Anemia, unspecified (2) GI bleed: Qualified Codes: K92.2 - Gastrointestinal hemorrhage, unspecified Montana Mckeon MD Oct 09, 2017 14:56
[2017-10-09] MEDS ORDERED: POTASSIUM CHLORIDE 20 MEQ PWD PACKET PO ONE (15:00)
[2017-10-09] MEDS: SODIUM CHLOR 0.9% 1000 ML INJ 1,000 ML IV SCH ×2 (16:20→18:34)
[2017-10-09] MEDS: PANTOPRAZOLE SOD 40 MG DELAYED RELEASE TAB PO SCH (20:52)
[2017-10-09] MEDS: GABAPENTIN 300 MG CAP PO SCH (20:52)
[2017-10-09] MEDS ORDERED: PRAVASTATIN SOD 20 MG TAB PO SCH (21:00)
[2017-10-10 04:20] VITALS: BP 136/65; PULSE 61; RESP 18; TEMP 98.1; O2SAT 97
[2017-10-10] MEDS: DILTIAZEM HCL 30 MG TAB PO SCH (04:52)
[2017-10-10] MEDS: SODIUM CHLOR 0.9% 1000 ML INJ 1,000 ML IV SCH (04:52)
--- NOTE | 2017-10-10 06:24 | PD.CARD.PN ---
Subjective Subjective Remarks PT without CV complaints Objective Medications Current Medications Medications (Trade) Dose Ordered Sig/Steve Route Start Time Stop Time Status Last Admin Sodium Chloride 1,000 ml @ 100 mls/hr Q10H IV 10/05/17 14:34 10/10/17 04:52 (NS Flush) 2 ml UNSCH PRN IV FLUSH 10/05/17 14:45 (NS Flush) 2 ml BID IV FLUSH 10/05/17 21:00 10/09/17 20:52 (Tylenol) 650 mg Q4H PRN PO 10/05/17 14:45 (Zofran Inj) 4 mg Q6H PRN IVP 10/05/17 14:45 10/06/17 22:28 (Narcan Inj) 0.4 mg UNSCH PRN IV PUSH 10/05/17 14:45 ([place] 7.5-325 Mg) 1 tab Q6H PRN PO 10/05/17 19:45 10/09/17 08:59 (Cardizem) 30 mg Q6H PO 10/07/17 22:00 10/10/17 04:52 (Protonix) 40 mg BID PO 10/09/17 21:00 10/09/17 20:52 (CeleXA) 20 mg DAILY PO 10/10/17 09:00 (Lanoxin) 0.125 mg DAILY PO 10/10/17 09:00 (Neurontin) 300 mg BID PO 10/09/17 21:00 10/09/17 20:52 (Pravachol) 20 mg HS PO 10/09/17 21:00 10/09/17 20:52 Vital Signs / I&O Vital Signs Date Time Temp Pulse Resp B/P (MAP) Pulse Ox O2 Delivery O2 Flow Rate FiO2 10/10/17 04:20 98.1 61 18 136/65 (88) 97 10/09/17 23:50 98.4 76 18 147/67 (93) 98 10/09/17 20:00 Room Air 10/09/17 19:54 73 10/09/17 19:53 98.6 69 18 127/65 (85) 96 10/09/17 16:30 98.4 67 18 129/61 (83) 95 10/09/17 12:55 97.9 68 20 137/71 (93) 98 10/09/17 12:00 98.0 61 20 166/67 (100) 94 10/09/17 08:00 98.0 64 20 150/66 (94) 95 10/09/17 08:00 83 10/09/17 07:00 Room Air 10/09/17 06:35 99.0 67 16 153/70 (97) 98 I/O 10/09/17 10/09/17 10/09/17 10/10/17 10/10/17 10/10/17 07:00 15:00 23:00 07:00 15:00 23:00 Intake Total 2132 ml 500 ml 600 ml 1548 ml Output Total 150 ml Balance 2132 ml 500 ml 450 ml 1548 ml Intake Oral 570 ml 600 ml 120 ml IV Total 782 ml 1428 ml Packed Cells 750 ml Blood Product IV Normal Saline Flush 30 ml Other 500 ml Output Urine Total 150 ml # Voids 8 6 # Bowel Movements 0 0 0 Physical Exam GENERAL: Well developed, well nourished. No acute distress. HEENT: Jugular venous pressure is normal. CHEST: Lungs clear to auscultation bilaterally. Unlabored respiratory effort. CARDIAC: irregular rate and rhythm without S3, S4, or murmur. ABDOMEN: Soft, nontender, no hepatosplenomegaly. Bowel sounds present. EXTREMITIES: No clubbing, cyanosis, or edema. Laboratory Laboratory Tests Test 10/09/17 08:10 White Blood Count 10.9 TH/MM3 Red Blood Count 3.55 MIL/MM3 Hemoglobin 11.6 GM/DL Hematocrit 32.5 % Mean Corpuscular Volume 91.7 FL Mean Corpuscular Hemoglobin 32.7 PG Mean Corpuscular Hemoglobin Concent 35.6 % Red Cell Distribution Width 14.2 % Platelet Count 195 TH/MM3 Mean Platelet Volume 8.4 FL Neutrophils (%) (Auto) 73.2 % Lymphocytes (%) (Auto) 17.9 % Monocytes (%) (Auto) 5.9 % Eosinophils (%) (Auto) 2.8 % Basophils (%) (Auto) 0.2 % Neutrophils # (Auto) 8.0 TH/MM3 Lymphocytes # (Auto) 2.0 TH/MM3 Monocytes # (Auto) 0.6 TH/MM3 Eosinophils # (Auto) 0.3 TH/MM3 Basophils # (Auto) 0.0 TH/MM3 CBC Comment DIFF FINAL Differential Comment Blood Urea Nitrogen 10 MG/DL Creatinine 0.63 MG/DL Random Glucose 105 MG/DL Total Protein 5.5 GM/DL Albumin 3.0 GM/DL Calcium Level 8.5 MG/DL Alkaline Phosphatase 31 U/L Aspartate Amino Transf (AST/SGOT) 25 U/L Alanine Aminotransferase (ALT/SGPT) 22 U/L Total Bilirubin 1.7 MG/DL Sodium Level 140 MEQ/L Potassium Level 2.8 MEQ/L Chloride Level 104 MEQ/L Carbon Dioxide Level 26.5 MEQ/L Anion Gap 10 MEQ/L Estimat Glomerular Filtration Rate 91 ML/MIN Assessment and Plan Assessment and Plan AF- NSR =>change to long acting dilt, d/c dig -no anticoagulation s/p more PRBC yesterday GIB- PUD Available PRLyric Tyson MD Oct 10, 2017 06:24
[2017-10-10 08:00] VITALS: BP 152/73; PULSE 57; PULSE 82; RESP 16; TEMP 97.9; O2SAT 97
[2017-10-10] MEDS ORDERED: DIGOXIN 0.125 MG TAB PO SCH (09:00)
[2017-10-10] MEDS ORDERED: CITALOPRAM HYDROBROMIDE 20 MG TAB PO SCH (09:00)
[2017-10-10] MEDS ORDERED: DILTIAZEM-CD 120 MG CAP ER PO SCH (09:00)
[2017-10-10 10:28] LABS: AUTOMATED NEUTROPHIL # 5.1 TH/MM3 (1.8-7.7); BASOPHIL % 0.6 % (0.0-2.0); EOSINOPHIL # 0.4 TH/MM3 (0-0.4); EOSINOPHIL % 4.4 % (0.0-4.0); HEMATOCRIT 29.5 % (35.0-46.0); HEMO FLAGS DIFF FINAL; LYMPH % 25.5 % (9.0-44.0); LYMPHOCYTE # 2.1 TH/MM3 (1.0-4.8); MEAN CELL VOLUME 92.9 FL (80.0-100.0); MEAN CORPUSCULAR HEMOGLOBIN 33.3 PG (27.0-34.0); MEAN CORPUSCULAR HGB CONC 35.8 % (32.0-36.0); MONO % 6.8 % (0.0-8.0); NEUT % 62.7 % (16.0-70.0); PLATELET COUNT 211 TH/MM3 (150-450); RED BLOOD COUNT 3.18 MIL/MM3 (4.00-5.30); RED CELL DISTRIBUTION WIDTH 14.2 % (11.6-17.2); WHITE BLOOD COUNT 8.2 TH/MM3 (4.0-11.0)
[2017-10-10] MEDS: GABAPENTIN 300 MG CAP PO SCH (10:30)
[2017-10-10] MEDS: ACETAMINOPHEN/HYDROcodone 325 MG/7.5 MG TAB PO PRN (10:31)
[2017-10-10] MEDS: SODIUM CHLORIDE 0.9% FLUSH 10 ML FLUSH IV FLUSH SCH (10:31)
[2017-10-10] MEDS: PANTOPRAZOLE SOD 40 MG DELAYED RELEASE TAB PO SCH (10:31)
[2017-10-10 10:54] LABS: ANION GAP 8 MEQ/L (5-15); AST (GOT) 22 U/L (15-37); BICARBONATE 28.3 MEQ/L (21.0-32.0); BLOOD UREA NITROGEN 8 MG/DL (7-18); CHLORIDE 108 MEQ/L (98-107); GLOMERULAR FILTRATION RATE 98 ML/MIN (>89); POTASSIUM 3.1 MEQ/L (3.5-5.1); SODIUM (NA) 144 MEQ/L (136-145)
[2017-10-10 10:57] LABS: ALKALINE PHOSPHATASE 29 U/L (45-117); ALT (GPT) 20 U/L (10-53); TOTAL BILIRUBIN ADULT 0.8 MG/DL (0.2-1.0)
[2017-10-10] MEDS ORDERED: POTASSIUM CHLORIDE 20 MEQ PWD PACKET PO ONE (11:45)
[2017-10-10] MEDS ORDERED: PANT40TA3 PO (12:37)
[2017-10-10] MEDS ORDERED: DILT120C50 PO (12:37)
--- NOTE | 2017-10-10 14:58 | HHI.DS ---
Discharge Summary Admission Date Oct 05, 2017 at 13:32 Discharge Date: Oct 10, 2017 Admitting Diagnosis GI bleed (1) Afib ICD Code: I48.91 - Unspecified atrial fibrillation Diagnosis: Principal (2) Back pain ICD Code: M54.9 - Dorsalgia, unspecified Diagnosis: Principal (3) Hyperlipidemia ICD Code: E78.5 - Hyperlipidemia, unspecified Diagnosis: Principal (4) GI bleed ICD Code: K92.2 - Gastrointestinal hemorrhage, unspecified Diagnosis: Principal Status: Acute (5) Anemia ICD Code: D64.9 - Anemia, unspecified Diagnosis: Principal Status: Acute Procedures EGD Brief History - From Admission This patient is an 82 year old female with a history of atrial fibrillation although not on any blood thinners. She comes to the emergency room with onset 2 days of abdominal discomfort and increasing weakness with sudden onset of vomiting blood and bleeding per her rectum. She went to the bathroom and didn' t come back and her found her lethargic with lots of blood surrounding her in the bathroom. EMS was called and blood pressure was quite low in the 80s over 40s. Patient was given IV fluids in the field and transferred to the emergency room. Patient complains of being cold. She denies any pain at this time although she said her abdomen hurt when she went to the bathroom. She is ever had any bleeding before. She disarm her having endoscopy but this time she feels very tired. She denies any NSAIDs but takes Narco and gabapentin for pain. Patient admitted to the hospital for further evaluation of acute onset of GI bleeding CBC/BMP: 10/10/17 0906 10/10/17 0906 Significant Findings Laboratory Tests Test 10/08/17 18:57 10/09/17 08:10 10/10/17 09:06 Red Blood Count 2.10 MIL/MM3 (4.00-5.30) 3.55 MIL/MM3 (4.00-5.30) 3.18 MIL/MM3 (4.00-5.30) Hemoglobin 6.9 GM/DL (11.6-15.3) 10.6 GM/DL (11.6-15.3) Hematocrit 19.6 % (35.0-46.0) 32.5 % (35.0-46.0) 29.5 % (35.0-46.0) Total Protein 4.3 GM/DL (6.4-8.2) 5.5 GM/DL (6.4-8.2) 5.0 GM/DL (6.4-8.2) Calcium Level 7.3 MG/DL (8.5-10.1) 7.9 MG/DL (8.5-10.1) Potassium Level 3.2 MEQ/L (3.5-5.1) 2.8 MEQ/L (3.5-5.1) 3.1 MEQ/L (3.5-5.1) Chloride Level 113 MEQ/L (98-107) 108 MEQ/L (98-107) Neutrophils (%) (Auto) 73.2 % (16.0-70.0) Neutrophils # (Auto) 8.0 TH/MM3 (1.8-7.7) Albumin 3.0 GM/DL (3.4-5.0) 2.6 GM/DL (3.4-5.0) Alkaline Phosphatase 31 U/L (45-117) 29 U/L (45-117) Total Bilirubin 1.7 MG/DL (0.2-1.0) Eosinophils (%) (Auto) 4.4 % (0.0-4.0) Random Glucose 109 MG/DL (74-106) Hospital Course Mrs. Barron is an 82-year-old female. She was admitted secondary to hematemesis. Acute anemia occurred. Transfusion was provided. She had resolution of her hematemesis since admission but did demonstrate some downward trends in her hemoglobin. Original EGD was deferred secondary to an onset of A. fib RVR. This resolved with digoxin the patient has been started on Cardizem by cardiology for better rate control. EGD was performed and 2 ulcers were found. She had a repeat transfusion day before EGD and since this transfusion her blood counts have remained stable. She is medically stable for discharge to home today on twice a day Protonix and resumption of all of her other medications except for aspirin. Pt Condition on Discharge: Stable Discharge Disposition: Discharge Home Discharge Time: <= 30 minutes Discharge Instructions DIET: Follow Instructions for: As Tolerated, No Restrictions Activities you can perform: Regular-No Restrictions Follow up Referrals: Gastroenterology - 1 Week PCP Follow-up - 1 Week New Medications: Diltiazem CD 24 HR (Diltiazem CD 24 HR) 120 Mg Caper 120 MG PO DAILY for Heart Rate Control, #30 CAP Pantoprazole (Pantoprazole) 40 Mg Tab 40 MG PO BID for Ulcers, #60 TAB Continued Medications: Citalopram (Celexa) 20 Mg Tab 20 MG PO DAILY for Control Depression, #30 TAB 0 Refills Gabapentin (Gabapentin) 300 Mg Cap 300 MG PO DAILY IN THE PM, #60 CAP 0 Refills Hydrocodone-Acetaminophen ([place]) 7.5-325 mg Tab 1 TAB PO Q8HR PRN for PAIN, TAB 0 Refills Lovastatin (Lovastatin) 20 Mg Tab 20 MG PO HS for Cholesterol Management, #30 TAB 0 Refills Discontinued Medications: Digoxin (Lanoxin) 125 Mcg Tablet 125 MCG PO DAILY Montana Mckeon MD Oct 10, 2017 14:58
== END 2017-10-10 14:23 | disposition home or self-care (01) | DRG 378 ==
LOC: NEPE 10:06 → NEDA 13:32 → N04A 16:05
PROVIDERS: ADMIT Hospitalist; ATTEND Hospitalist
PROC: 30233N1 Transfusion of Nonautologous Red Blood Cells into Peripheral Vein, Percutaneous Approach (ICD-10-PCS; 2017-10-06)
PROC: 0DB68ZX Excision of Stomach, Via Natural or Artificial Opening Endoscopic, Diagnostic (ICD-10-PCS; principal; 2017-10-09 12:22)
DX: K25.4 Chronic or unspecified gastric ulcer with hemorrhage (principal); D62 Acute posthemorrhagic anemia; I95.9 Hypotension, unspecified; I10 Essential (primary) hypertension; I48.91 Unspecified atrial fibrillation; F32.9 Major depressive disorder, single episode, unspecified; G89.29 Other chronic pain; M54.9 Dorsalgia, unspecified; E78.5 Hyperlipidemia, unspecified; F41.9 Anxiety disorder, unspecified; R00.0 Tachycardia, unspecified; Z53.8 Procedure and treatment not carried out for other reasons
CPT/HCPCS: 36430; 70450; 71010; 74177; 80048; 80053; 80162; 81001; 83540; 83550; 84155; 84436; 84443; 84481; 85014; 85018; 85025; 85027; 85610; 85730; 86850; 86900; 86901; 86920; 88305; 88312; 93005; C9113; J1160; J1940; J2405; J7030; J7040; J7050; P9016; Q9967